=== PATIENT | male | born 1950 | race Caucasian/White ===

== ENCOUNTER 2017-01-27 06:26 | Inpatient (IN) | payer BC ==
[2017-01-26 14:00] LABS: CHLORIDE,CL 102 mmol/L (98-110); SODIUM,NA 140 mmol/L (136-146)
[2017-01-27] MEDS ORDERED: Sodium Chloride 0.9% 2.5 ML Syringe FLUSH PRN (07:00)
[2017-01-27] MEDS ORDERED: Lactated Ringers 1,000 ML IV SCH (07:00)
[2017-01-27] MEDS ORDERED: ceFAZolin 2 GM in Premix Bag 1 BAG IV ONE (07:00)
[2017-01-27] MEDS ORDERED: Sodium Chloride 0.9% 10 ML Syringe FLUSH PRN (07:00)
[2017-01-27] MEDS ORDERED: Propofol 200 MG/20 ML SDV ONE ×3 (07:18→10:37)
[2017-01-27] MEDS ORDERED: Lidocaine 2% 5 ML SDV ONE (07:18)
[2017-01-27] MEDS ORDERED: fentaNYL 250 MCG/5 ML SDV ONE (07:19)
[2017-01-27] MEDS ORDERED: fentaNYL 100 MCG/2 ML SDV ONE (07:19)
[2017-01-27] MEDS ORDERED: Midazolam 1 MG/ML 2 ML SDV ONE (07:19)
[2017-01-27] MEDS ORDERED: Neostigmine Methylsulfate 1 MG/ML 5 ML Syringe ONE (07:23)
[2017-01-27] MEDS ORDERED: Ondansetron 4 MG/2 ML SDV ONE (07:23)
[2017-01-27] MEDS ORDERED: Rocuronium 10 MG/ML 10 ML Syringe ONE ×2 (07:23→09:25)
[2017-01-27] MEDS ORDERED: ePHEDrine 50 MG/ML SDV ONE (07:25)
[2017-01-27] MEDS ORDERED: Morphine PF 10 MG/10 ML SDV ONE (07:33)
[2017-01-27] MEDS ORDERED: Gentamicin 40 MG/ML 2 ML Vial ONE (07:41)
--- NOTE | 2017-01-27 07:49 | PCM.PREANE ---
Preanesthetic Assessment - Procedure Proposed Procedure: Right radical nephrectomy - Anesthesia/Transfusion/Family Hx Anesthesia History: Prior Anesthesia Without Reaction Family History of Anesthesia Reaction: No Transfusion History: No Prior Transfusion(s) Intubation History: Unknown Additional History: 2 yr ago had emergent abdominal surgery for perforated bowel at colonoscopy. - Review of Systems General: No Symptoms Pulmonary: Cough (typical smokers cough) Cardiovascular: No Symptoms (active work lifestyle) Gastrointestinal: No Symptoms Neurological: No Symptoms Other: Reports: None - Physical Assessment NPO Status Date: 01/26/17 NPO Status Time: 23:00 O2 Sat by Pulse Oximetry: 95 Respiratory Rate: 16 Vital Signs: Last Vital Signs Temp 97.0 F 01/27/17 06:42 Pulse 84 01/27/17 06:42 Resp 16 01/27/17 06:42 BP 129/82 01/27/17 06:42 Pulse Ox 95 01/27/17 06:42 Height: 5 ft 10 in Weight: 163 lb ASA Class: 3 Mental Status: Alert & Oriented x3 Airway Class: Mallampati = 2 Dentition: Reports: Normal Dentition Thyro-Mental Finger Breadths: 3 (bearded) Mouth Opening Finger Breadths: 3 (narrow mouth) ROM/Head Extension: Limited/Partial Lungs: Clear to Auscultation, Normal Respiratory Effort Cardiovascular: Regular Rate, Regular Rhythm, No Murmurs - Lab Values: Laboratory Last Values WBC 10.19 K/uL (4.0-11.0) 01/26/17 13:34 RBC 4.65 M/uL (4.50-5.90) 01/26/17 13:34 Hgb 15.5 g/dL (13.0-17.0) 01/26/17 13:34 Hct 45.3 % (38.0-50.0) 01/26/17 13:34 MCV 97.4 fL (80.0-98.0) 01/26/17 13:34 MCH 33.3 pg (27.0-32.0) H 01/26/17 13:34 MCHC 34.2 g/dL (31.0-37.0) 01/26/17 13:34 RDW Std Deviation 49.0 fl (28.0-62.0) 01/26/17 13:34 RDW Coeff of Durga 14 % (11.0-15.0) 01/26/17 13:34 Plt Count 384 K/uL (150-400) 01/26/17 13:34 MPV 9.70 fL (7.40-12.00) 01/26/17 13:34 Neut % (Auto) 62.1 % (48.0-80.0) 01/26/17 13:34 Lymph % (Auto) 26.5 % (16.0-40.0) 01/26/17 13:34 [place] % (Auto) 10.4 % (0.0-15.0) 01/26/17 13:34 Eos % (Auto) 0.8 % (0.0-7.0) 01/26/17 13:34 Baso % (Auto) 0.2 % (0.0-1.5) 01/26/17 13:34 Neut # (Auto) 6.3 K/uL (1.4-5.7) H 01/26/17 13:34 Lymph # (Auto) 2.7 K/uL (0.6-2.4) H 01/26/17 13:34 [place] # (Auto) 1.1 K/uL (0.0-0.8) H 01/26/17 13:34 Eos # (Auto) 0.1 K/uL (0.0-0.7) 01/26/17 13:34 Baso # (Auto) 0.0 K/uL (0.0-0.1) 01/26/17 13:34 Nucleated RBC % 0.0 /100WBC 01/26/17 13:34 Nucleated RBCs # 0 K/uL 01/26/17 13:34 Sodium 140 mmol/L (136-146) 01/26/17 13:34 Potassium 4.4 mmol/L (3.5-5.1) 01/26/17 13:34 Chloride 102 mmol/L (98-110) 01/26/17 13:34 Carbon Dioxide 30 mmol/L (21-31) 01/26/17 13:34 BUN 14 mg/dL (6.0-23.0) 01/26/17 13:34 Creatinine 0.9 mg/dL (0.6-1.5) 01/26/17 13:34 Est Cr Clr Drug Dosing 85.62 mL/min 01/26/17 13:34 Estimated GFR (MDRD) > 60.0 ml/min 01/26/17 13:34 Glucose 102 mg/dL (60-110) 01/26/17 13:34 Calcium 9.8 mg/dL (8.8-10.8) 01/26/17 13:34 Blood Type A NEGATIVE 01/26/17 13:34 Antibody Screen NEGATIVE 01/26/17 13:34 Crossmatch See Detail 01/26/17 13:34 - Imaging/EKG Impressions: SR, Q III and ?aVF, II - old inferior UT (without any history). - Allergies Allergies/Adverse Reactions: Allergies Allergy/AdvReac Type Severity Reaction Status Date / Time No Known Allergies Allergy Verified 01/27/17 07:21 - Blood Blood Available: Yes Product(s) Available: PRBC (T and C) - Anesthesia Plan Pre-Op Medication Ordered: None - Acknowledgements Anesthesia Type Planned: General Anesthesia (consider spinal MS for postoperative pain management assist) Pt an Appropriate Candidate for the Planned Anesthesia: Yes Alternatives and Risks of Anesthesia Discussed w Pt/Guardian: Yes Pt/Guardian Understands and Agrees with Anesthesia Plan: Yes PreAnesthesia Questionnaire HEENT History: Reports: Hard of Hearing, Other (See Below) Other HEENT History: has upper partial permanent bridge Cardiovascular History: Reports: Hypertension Respiratory History: Reports: COPD Musculoskeletal History: Reports: Back Pain, Chronic, Fracture Other Musculoskeletal History: hx of fx clavicle Endocrine/Metabolic History: Reports: Other (See Below) Other Endocrine/Metabolic History: states is "pre-diabetic" - Past Surgical History HEENT Surgical History: Reports: Other (See Below) Other HEENT Surgeries/Procedures: had "lump" removed from throat here and at [facility] GI Surgical History: Reports: Colon, Colonoscopy, Hernia, Inguinal Other GI Surgeries/Procedures: had colonoscopy with perforation, colon repair - SUBSTANCE USE Smoking Status *Q: Current Every Day Smoker Tobacco Use Within Last Twelve Months: Cigarettes Number of Drinks Per Day: 6 Recreational Drug Use History: No - HOME MEDS Home Medications: Home Meds Albuterol [IJD: Albuterol HFA] 1 puff INH ASDIRECTED PRN 01/24/17 [History] Doxycycline Hyclate 100 mg PO BID 01/24/17 [History] Metoprolol Succinate 50 mg PO BID 01/24/17 [History] Promethazine/Phenyleph/Codeine [Promethazine VC-Codeine Syrup] 1 dose PO ASDIRECTED PRN 01/24/17 [History] - CURRENT (IN HOUSE) MEDS Current Meds: Current Medications Lactated Ringer's (Ringers, Lactated) 1,000 mls @ 200 mls/hr IV ASDIRECTED KINA Last Admin: 01/27/17 06:47 Dose: 200 mls/hr Sodium Chloride (Saline Flush) 10 ml FLUSH ASDIRECTED PRN PRN Reason: Keep Vein Open Sodium Chloride (Saline Flush) 2.5 ml FLUSH ASDIRECTED PRN PRN Reason: Keep Vein Open Discontinued Medications Ephedrine Sulfate (Ephedrine Sulfate) Confirm Administered Dose 100 mg .ROUTE .STK-MED ONE Stop: 01/27/17 07:26 Fentanyl (Sublimaze) Confirm Administered Dose 100 mcg .ROUTE .STK-MED ONE Stop: 01/27/17 07:20 Fentanyl (Sublimaze) Confirm Administered Dose 250 mcg .ROUTE .STK-MED ONE Stop: 01/27/17 07:20 Glycopyrrolate () Confirm Administered Dose 1 mg .ROUTE .STK-MED ONE Stop: 01/27/17 07:24 Cefazolin Sodium/Dextrose 2 gm (/ Premix) 50 mls @ 100 mls/hr IV ONCALL ONE Stop: 01/27/17 07:29 Lidocaine (Xylocaine-Mpf 2%) Confirm Administered Dose 10 ml .ROUTE .STK-MED ONE Stop: 01/27/17 07:19 Midazolam HCl (Versed 1 Mg/Ml) Confirm Administered Dose 2 mg .ROUTE .STK-MED ONE Stop: 01/27/17 07:20 Morphine Sulfate (Duramorph Pf) Confirm Administered Dose 10 mg .ROUTE .STK-MED ONE Stop: 01/27/17 07:34 Neostigmine Methylsulfate (Neostigmine) Confirm Administered Dose 5 mg .ROUTE .STK-MED ONE Stop: 01/27/17 07:24 Ondansetron HCl (Zofran) Confirm Administered Dose 8 mg .ROUTE .STK-MED ONE Stop: 01/27/17 07:24 Propofol (Diprivan 20 Ml) Confirm Administered Dose 400 mg .ROUTE .STK-MED ONE Stop: 12/07/17 07:19 Rocuronium [place] (Zemuron) Confirm Administered Dose 100 mg .ROUTE .[facility] ONE Stop: 01/27/17 07:24
[2017-01-27] MEDS ORDERED: Phenylephrine/Normal Saline 100 MCG/ML 10 ML Syringe ONE (08:59)
[2017-01-27] MEDS ORDERED: Phenylephrine 1% 10 MG/ML SDV ONE (08:59)
[2017-01-27] MEDS ORDERED: Ondansetron 4 MG/2 ML SDV IVPUSH PRN (11:18)
[2017-01-27] MEDS ORDERED: ceFAZolin 1 GM in Premix Bag 1 BAG IV SCH (11:30)
[2017-01-27] MEDS: D5 1/2 NS w/ 20 mEq/L KCl 1,000 ML IV SCH ×2 (12:22→19:02)
[2017-01-27] MEDS ORDERED: HYDROmorphone 2 MG/ML Syringe IVPUSH PRN (12:25)
[2017-01-27 12:28] LABS: CHLORIDE,CL 105 mmol/L (98-110); SODIUM,NA 138 mmol/L (136-146)
[2017-01-27] MEDS ORDERED: HYDROmorphone 2 MG/ML Syringe ONE (12:35)
[2017-01-27] MEDS: ceFAZolin 1 GM in Premix Bag 1 BAG IV SCH ×2 (14:02→20:22)
--- NOTE | 2017-01-27 14:29 | PCM.POSTAN ---
POST ANESTHESIA ASSESSMENT - MENTAL STATUS Mental Status: Alert, Oriented - RESPIRATORY Respiratory Status: Respiratory Rate WNL, Airway Patent, O2 Saturation Stable - CARDIOVASCULAR CV Status: Pulse Rate WNL, Blood Pressure Stable - GASTROINTESTINAL GI Status: No Symptoms - POST OP HYDRATION Hydration Status: Adequate & Stable
[2017-01-27] MEDS ORDERED: Naloxone 0.4 MG/ML Syringe IVPUSH PRN (15:13)
[2017-01-27] MEDS ORDERED: Nalbuphine 10 MG/1 ML Vial IVPUSH PRN (15:13)
[2017-01-27] MEDS ORDERED: fentaNYL 100 MCG/2 ML SDV IVPUSH PRN (15:57)
[2017-01-27] MEDS: Enoxaparin 40 MG/0.4 ML Syringe SUBCUT SCH (17:23)
[2017-01-27] MEDS ORDERED: Albuterol 8 GM Inhaler INH PRN (19:26)
[2017-01-27] MEDS ORDERED: LORazepam 1 MG Tab PO SCH (19:45)
[2017-01-27] MEDS: Metoprolol Succinate 50 MG Tab.ER PO SCH (20:23)
[2017-01-28] MEDS: ceFAZolin 1 GM in Premix Bag 1 BAG IV SCH ×4 (01:19→19:45)
[2017-01-28] MEDS: D5 1/2 NS w/ 20 mEq/L KCl 1,000 ML IV SCH (02:47)
[2017-01-28] MEDS ORDERED: Pantoprazole 40 MG Tab.CR PO SCH (07:30)
[2017-01-28] MEDS: Metoprolol Succinate 50 MG Tab.ER PO SCH ×3 (07:57→19:59)
--- NOTE | 2017-01-28 08:01 | PCM.CONS ---
<Graham Desouza - Last Filed: 01/28/17 11:01> H&P History of Present Illness - General Admit Problem/Dx: Admission Diagnosis/Problem Admission Diagnosis/Problem Renal mass - Related Data Allergies/Adverse Reactions: Allergies Allergy/AdvReac Type Severity Reaction Status Date / Time No Known Allergies Allergy Verified 01/27/17 07:21 Home Medications: Home Meds Albuterol [IJD: Albuterol HFA] 1 puff INH DAILY PRN 01/24/17 [History] Doxycycline Hyclate 100 mg PO BID 01/24/17 [History] Metoprolol Succinate 50 mg PO BID 01/24/17 [History] Promethazine/Phenyleph/Codeine [Promethazine VC-Codeine Syrup] 1 dose PO ASDIRECTED PRN 01/24/17 [History] Codeine/Promethazine [Phenergan with Codeine] 10 ml PO Q4H PRN 01/27/17 [History ] Exam - Vital Signs Vital Signs: Last Vital Signs Temp 97.8 F 01/28/17 04:00 Pulse 100 01/28/17 07:57 Resp 16 01/28/17 07:00 BP 153/92 H 01/28/17 07:57 Pulse Ox 94 L 01/28/17 07:00 - Patient Data Lab Results Last 24 hrs: Laboratory Results - last 24 hr 01/27/17 01/27/17 01/28/17 Range/Units 11:47 11:47 05:15 WBC 18.52 H 11.29 H (4.0-11.0) K/uL RBC 3.94 L 3.72 L (4.50-5.90) M/uL Hgb 12.8 L 12.1 L (13.0-17.0) g/dL Hct 39.0 36.9 L (38.0-50.0) % MCV 99.0 H 99.2 H (80.0-98.0) fL MCH 32.5 H 32.5 H (27.0-32.0) pg MCHC 32.8 32.8 (31.0-37.0) g/dL RDW Std Deviation 50.1 50.3 (28.0-62.0) fl RDW Coeff of Durga 14 14 (11.0-15.0) % Plt Count 330 275 (150-400) K/uL MPV 9.80 10.40 (7.40-12.00) fL Neut % (Auto) 79.8 65.4 (48.0-80.0) % Lymph % (Auto) 12.5 L 18.5 (16.0-40.0) % [place] % (Auto) 6.7 14.0 (0.0-15.0) % Eos % (Auto) 0.9 2.0 (0.0-7.0) % Baso % (Auto) 0.1 0.1 (0.0-1.5) % Neut # (Auto) 14.8 H 7.4 H (1.4-5.7) K/uL Lymph # (Auto) 2.3 2.1 (0.6-2.4) K/uL [place] # (Auto) 1.3 H 1.6 H (0.0-0.8) K/uL Eos # (Auto) 0.2 0.2 (0.0-0.7) K/uL Baso # (Auto) 0.0 0.0 (0.0-0.1) K/uL Nucleated RBC % 0.0 0.0 /100WBC Nucleated RBCs # 0 0 K/uL Sodium 138 (136-146) mmol/L Potassium 4.5 (3.5-5.1) mmol/L Chloride 105 (98-110) mmol/L Carbon Dioxide 29 (21-31) mmol/L BUN 11 (6.0-23.0) mg/dL Creatinine 0.9 (0.6-1.5) mg/dL Est Cr Clr Drug Dosing 85.62 mL/min Estimated GFR (MDRD) > 60.0 ml/min Glucose 128 H (60-110) mg/dL Calcium 8.6 L (8.8-10.8) mg/dL Troponin I (0.0-0.29) NG/ML 01/28/17 Range/Units 05:15 WBC (4.0-11.0) K/uL RBC (4.50-5.90) M/uL Hgb (13.0-17.0) g/dL Hct (38.0-50.0) % MCV (80.0-98.0) fL MCH (27.0-32.0) pg MCHC (31.0-37.0) g/dL RDW Std Deviation (28.0-62.0) fl RDW Coeff of Durga (11.0-15.0) % Plt Count (150-400) K/uL MPV (7.40-12.00) fL Neut % (Auto) (48.0-80.0) % Lymph % (Auto) (16.0-40.0) % [place] % (Auto) (0.0-15.0) % Eos % (Auto) (0.0-7.0) % Baso % (Auto) (0.0-1.5) % Neut # (Auto) (1.4-5.7) K/uL Lymph # (Auto) (0.6-2.4) K/uL [place] # (Auto) (0.0-0.8) K/uL Eos # (Auto) (0.0-0.7) K/uL Baso # (Auto) (0.0-0.1) K/uL Nucleated RBC % /100WBC Nucleated RBCs # K/uL Sodium (136-146) mmol/L Potassium (3.5-5.1) mmol/L Chloride (98-110) mmol/L Carbon Dioxide (21-31) mmol/L BUN (6.0-23.0) mg/dL Creatinine (0.6-1.5) mg/dL Est Cr Clr Drug Dosing mL/min Estimated GFR (MDRD) ml/min Glucose (60-110) mg/dL Calcium (8.8-10.8) mg/dL Troponin I < 0.10 (0.0-0.29) NG/ML Result Diagrams: 01/28/17 05:15 01/27/17 11:47 Consult PN Assessment/Plan Procedures: Procedures AIRWAY INHALATION TREATMENT (06/14/13) ASSAY OF CK (CPK) (06/14/13) ASSAY OF NATRIURETIC PEPTIDE (06/14/13) ASSAY OF TROPONIN QUANT (06/14/13) CHEST X-RAY 2VW FRONTAL&LATL (06/14/13) COMPLETE CBC W/AUTO DIFF WBC (06/14/13) COMPREHEN METABOLIC PANEL (06/14/13) CREATINE MB FRACTION (06/14/13) ELECTROCARDIOGRAM TRACING (06/14/13) EMERGENCY DEPT VISIT (06/14/13) ROUTINE VENIPUNCTURE (06/14/13) URINALYSIS AUTO W/SCOPE (01/17/17) (1) Acid reflux SNOMED Code(s): 983620671 Code(s): K21.9 - GASTRO-ESOPHAGEAL REFLUX DISEASE WITHOUT ESOPHAGITIS Current Visit: Yes Problem List Initiated/Reviewed/Updated: Yes Plan: protonix tums <Jana Khoury - Last Filed: 01/28/17 11:23> H&P History of Present Illness - General Date of Service: 01/28/17 Admit Problem/Dx: Admission Diagnosis/Problem Admission Diagnosis/Problem Renal mass Source of Information: Patient - History of Present Illness Initial Comments - Free Text/Narative: 66 yo male who underwent right radical nephrectomy yesterday c/o of nonspecific epigastrium discomfort. He states he feels like a choking sensation. He denies chest pain, sob, n/v/d, diaphoresis. He is tolerating clear liquid diet. Onset of Symptoms: Reports: Today Abdomen Pain Score (Numeric/FACES): 2 Past Medical History HEENT History: Reports: Hard of Hearing, Other (See Below) Other HEENT History: has upper partial permanent bridge Cardiovascular History: Reports: Hypertension Respiratory History: Reports: COPD Musculoskeletal History: Reports: Back Pain, Chronic, Fracture Other Musculoskeletal History: hx of fx clavicle Endocrine/Metabolic History: Reports: Other (See Below) Other Endocrine/Metabolic History: states is "pre-diabetic" - Past Surgical History HEENT Surgical History: Reports: Other (See Below) Other HEENT Surgeries/Procedures: had "lump" removed from throat here and at [facility] GI Surgical History: Reports: Colon, Colonoscopy, Hernia, Inguinal Other GI Surgeries/Procedures: had colonoscopy with perforation, colon repair Social & Family History - Tobacco Use Smoking Status *Q: Current Every Day Smoker Years of Tobacco use: 43 Packs/Tins Daily: 1 Used Tobacco, but Quit: No Second Hand Smoke Exposure: No - Alcohol Use Number of Drinks Per Day: 6 - Recreational Drug Use Recreational Drug Use: No Drug Use in Last 12 Months: No H&P Review of Systems - Review of Systems: Review Of Systems: See Below General: Reports: No Symptoms HEENT: Reports: No Symptoms Pulmonary: Reports: No Symptoms Cardiovascular: Reports: No Symptoms Gastrointestinal: Reports: Other (episgastric nospecific discomfort) Musculoskeletal: Reports: No Symptoms Skin: Reports: No Symptoms Psychiatric: Reports: No Symptoms Neurological: Reports: No Symptoms Exam - Exam Exam: See Below - Vital Signs Vital Signs: Last Vital Signs Temp 97.8 F 01/28/17 04:00 Pulse 100 01/28/17 07:57 Resp 16 01/28/17 07:00 BP 153/92 H 01/28/17 07:57 Pulse Ox 94 L 01/28/17 07:00 Weight: 76 kg - Exam General: Alert, Oriented HEENT: Conjunctiva Clear, EOMI Neck: Supple, Trachea Midline Lungs: Clear to Auscultation, Normal Respiratory Effort Cardiovascular: Regular Rate, Regular Rhythm GI/Abdominal Exam: Normal Bowel Sounds, Soft Back Exam: Normal Inspection, Full Range of Motion Extremities: Normal Inspection, Normal Range of Motion - Patient Data Lab Results Last 24 hrs: Laboratory Results - last 24 hr 01/27/17 01/27/17 01/28/17 Range/Units 11:47 11:47 05:15 WBC 18.52 H 11.29 H (4.0-11.0) K/uL RBC 3.94 L 3.72 L (4.50-5.90) M/uL Hgb 12.8 L 12.1 L (13.0-17.0) g/dL Hct 39.0 36.9 L (38.0-50.0) % MCV 99.0 H 99.2 H (80.0-98.0) fL MCH 32.5 H 32.5 H (27.0-32.0) pg MCHC 32.8 32.8 (31.0-37.0) g/dL RDW Std Deviation 50.1 50.3 (28.0-62.0) fl RDW Coeff of Durga 14 14 (11.0-15.0) % Plt Count 330 275 (150-400) K/uL MPV 9.80 10.40 (7.40-12.00) fL Neut % (Auto) 79.8 65.4 (48.0-80.0) % Lymph % (Auto) 12.5 L 18.5 (16.0-40.0) % [place] % (Auto) 6.7 14.0 (0.0-15.0) % Eos % (Auto) 0.9 2.0 (0.0-7.0) % Baso % (Auto) 0.1 0.1 (0.0-1.5) % Neut # (Auto) 14.8 H 7.4 H (1.4-5.7) K/uL Lymph # (Auto) 2.3 2.1 (0.6-2.4) K/uL [place] # (Auto) 1.3 H 1.6 H (0.0-0.8) K/uL Eos # (Auto) 0.2 0.2 (0.0-0.7) K/uL Baso # (Auto) 0.0 0.0 (0.0-0.1) K/uL Nucleated RBC % 0.0 0.0 /100WBC Nucleated RBCs # 0 0 K/uL Sodium 138 (136-146) mmol/L Potassium 4.5 (3.5-5.1) mmol/L Chloride 105 (98-110) mmol/L Carbon Dioxide 29 (21-31) mmol/L BUN 11 (6.0-23.0) mg/dL Creatinine 0.9 (0.6-1.5) mg/dL Est Cr Clr Drug Dosing 85.62 mL/min Estimated GFR (MDRD) > 60.0 ml/min Glucose 128 H (60-110) mg/dL Calcium 8.6 L (8.8-10.8) mg/dL Troponin I (0.0-0.29) NG/ML 01/28/17 Range/Units 05:15 WBC (4.0-11.0) K/uL RBC (4.50-5.90) M/uL Hgb (13.0-17.0) g/dL Hct (38.0-50.0) % MCV (80.0-98.0) fL MCH (27.0-32.0) pg MCHC (31.0-37.0) g/dL RDW Std Deviation (28.0-62.0) fl RDW Coeff of Durga (11.0-15.0) % Plt Count (150-400) K/uL MPV (7.40-12.00) fL Neut % (Auto) (48.0-80.0) % Lymph % (Auto) (16.0-40.0) % [place] % (Auto) (0.0-15.0) % Eos % (Auto) (0.0-7.0) % Baso % (Auto) (0.0-1.5) % Neut # (Auto) (1.4-5.7) K/uL Lymph # (Auto) (0.6-2.4) K/uL [place] # (Auto) (0.0-0.8) K/uL Eos # (Auto) (0.0-0.7) K/uL Baso # (Auto) (0.0-0.1) K/uL Nucleated RBC % /100WBC Nucleated RBCs # K/uL Sodium (136-146) mmol/L Potassium (3.5-5.1) mmol/L Chloride (98-110) mmol/L Carbon Dioxide (21-31) mmol/L BUN (6.0-23.0) mg/dL Creatinine (0.6-1.5) mg/dL Est Cr Clr Drug Dosing mL/min Estimated GFR (MDRD) ml/min Glucose (60-110) mg/dL Calcium (8.8-10.8) mg/dL Troponin I < 0.10 (0.0-0.29) NG/ML Result Diagrams: 01/28/17 05:15 01/27/17 11:47 Consult PN Assessment/Plan Procedures: Procedures AIRWAY INHALATION TREATMENT (06/14/13) ASSAY OF CK (CPK) (06/14/13) ASSAY OF NATRIURETIC PEPTIDE (06/14/13) ASSAY OF TROPONIN QUANT (06/14/13) CHEST X-RAY 2VW FRONTAL&LATL (06/14/13) COMPLETE CBC W/AUTO DIFF WBC (06/14/13) COMPREHEN METABOLIC PANEL (06/14/13) CREATINE MB FRACTION (06/14/13) ELECTROCARDIOGRAM TRACING (06/14/13) EMERGENCY DEPT VISIT (06/14/13) ROUTINE VENIPUNCTURE (06/14/13) URINALYSIS AUTO W/SCOPE (01/17/17) My Orders Last 24 Hours: My Active Orders 01/28/17 07:30 Pantoprazole [ProTONIX] 40 mg PO ACBREAKFAST 01/28/17 07:57 Calcium Carbonate [Tums] 500 mg PO Q2HR PRN Plan: Episgastric nonspecific discomfort: EKG: no acute ST changes compared to yesterday's EKG Troponin negative start protonix 40 mg po QD and tums On CIWAA protocol as he consumes 8 drinks per day. HTN: stable. No changes at this time
[2017-01-28] MEDS ORDERED: Furosemide 40 MG/4 ML VIAL IVPUSH ONE (08:12)
[2017-01-28] MEDS ORDERED: D5 1/2 NS w/ 20 mEq/L KCl 1,000 ML IV SCH (08:14)
--- NOTE | 2017-01-28 09:23 | PCM.SURGPN ---
- General Info Date of Service: 01/28/17 Date of Surgery/Procedure: 01/21/17 POD#: 1 Functional Status: Reports: Pain Controlled - Review of Systems General: Reports: No Symptoms HEENT: Reports: No Symptoms Pulmonary: Reports: No Symptoms Cardiovascular: Reports: No Symptoms Gastrointestinal: Reports: Abdominal Pain Musculoskeletal: Reports: No Symptoms Skin: Reports: No Symptoms Neurological: Reports: No Symptoms Psychiatric: Reports: No Symptoms - Patient Data Vitals - Most Recent: Last Vital Signs Temp 97.8 F 01/28/17 04:00 Pulse 100 01/28/17 07:57 Resp 16 01/28/17 07:00 BP 153/92 H 01/28/17 07:57 Pulse Ox 94 L 01/28/17 07:00 Weight - Most Recent: 167 lb 8.821 oz I&O - Last 24 Hours: Intake & Output 01/27/17 01/28/17 01/28/17 19:59 03:59 11:59 Intake Total 11257 648 450 Output Total 490 1250 Balance 22427 648 -800 Lab Results Last 24 Hrs: Laboratory Results - last 24 hr 01/27/17 01/27/17 01/28/17 Range/Units 11:47 11:47 05:15 WBC 18.52 H 11.29 H (4.0-11.0) K/uL RBC 3.94 L 3.72 L (4.50-5.90) M/uL Hgb 12.8 L 12.1 L (13.0-17.0) g/dL Hct 39.0 36.9 L (38.0-50.0) % MCV 99.0 H 99.2 H (80.0-98.0) fL MCH 32.5 H 32.5 H (27.0-32.0) pg MCHC 32.8 32.8 (31.0-37.0) g/dL RDW Std Deviation 50.1 50.3 (28.0-62.0) fl RDW Coeff of Durga 14 14 (11.0-15.0) % Plt Count 330 275 (150-400) K/uL MPV 9.80 10.40 (7.40-12.00) fL Neut % (Auto) 79.8 65.4 (48.0-80.0) % Lymph % (Auto) 12.5 L 18.5 (16.0-40.0) % [place] % (Auto) 6.7 14.0 (0.0-15.0) % Eos % (Auto) 0.9 2.0 (0.0-7.0) % Baso % (Auto) 0.1 0.1 (0.0-1.5) % Neut # (Auto) 14.8 H 7.4 H (1.4-5.7) K/uL Lymph # (Auto) 2.3 2.1 (0.6-2.4) K/uL [place] # (Auto) 1.3 H 1.6 H (0.0-0.8) K/uL Eos # (Auto) 0.2 0.2 (0.0-0.7) K/uL Baso # (Auto) 0.0 0.0 (0.0-0.1) K/uL Nucleated RBC % 0.0 0.0 /100WBC Nucleated RBCs # 0 0 K/uL Sodium 138 (136-146) mmol/L Potassium 4.5 (3.5-5.1) mmol/L Chloride 105 (98-110) mmol/L Carbon Dioxide 29 (21-31) mmol/L BUN 11 (6.0-23.0) mg/dL Creatinine 0.9 (0.6-1.5) mg/dL Est Cr Clr Drug Dosing 85.62 mL/min Estimated GFR (MDRD) > 60.0 ml/min Glucose 128 H (60-110) mg/dL Calcium 8.6 L (8.8-10.8) mg/dL Troponin I (0.0-0.29) NG/ML 01/28/17 Range/Units 05:15 WBC (4.0-11.0) K/uL RBC (4.50-5.90) M/uL Hgb (13.0-17.0) g/dL Hct (38.0-50.0) % MCV (80.0-98.0) fL MCH (27.0-32.0) pg MCHC (31.0-37.0) g/dL RDW Std Deviation (28.0-62.0) fl RDW Coeff of Durga (11.0-15.0) % Plt Count (150-400) K/uL MPV (7.40-12.00) fL Neut % (Auto) (48.0-80.0) % Lymph % (Auto) (16.0-40.0) % [place] % (Auto) (0.0-15.0) % Eos % (Auto) (0.0-7.0) % Baso % (Auto) (0.0-1.5) % Neut # (Auto) (1.4-5.7) K/uL Lymph # (Auto) (0.6-2.4) K/uL [place] # (Auto) (0.0-0.8) K/uL Eos # (Auto) (0.0-0.7) K/uL Baso # (Auto) (0.0-0.1) K/uL Nucleated RBC % /100WBC Nucleated RBCs # K/uL Sodium (136-146) mmol/L Potassium (3.5-5.1) mmol/L Chloride (98-110) mmol/L Carbon Dioxide (21-31) mmol/L BUN (6.0-23.0) mg/dL Creatinine (0.6-1.5) mg/dL Est Cr Clr Drug Dosing mL/min Estimated GFR (MDRD) ml/min Glucose (60-110) mg/dL Calcium (8.8-10.8) mg/dL Troponin I < 0.10 (0.0-0.29) NG/ML Med Orders - Current: Current Medications Hydrocodone Bitart/Acetaminophen ([place] 325-5 Mg) 1 tab PO Q4H PRN PRN Reason: Pain Albuterol (Ventolin Hfa) 0 gm INH DAILY PRN PRN Reason: Wheezing Calcium Carbonate/Glycine (Tums) 500 mg PO Q2HR PRN PRN Reason: Indigestion Enoxaparin Sodium (Lovenox) 40 mg SUBCUT Q24H [facility] Last Admin: 01/27/17 17:23 Dose: Not Given Fentanyl (Sublimaze) 50 - 100 mcg IVPUSH Q2H PRN PRN Reason: Breakthrough Pain Hydromorphone HCl (Dilaudid) 2 mg IVPUSH Q2H PRN PRN Reason: Pain Last Admin: 01/27/17 12:40 Dose: 2 mg Lactated Ringer's (Ringers, Lactated) 1,000 mls @ 200 mls/hr IV ASDIRECTED [facility] Last Admin: 01/27/17 06:47 Dose: 200 mls/hr Cefazolin Sodium/Dextrose 1 gm (/ Premix) 50 mls @ 100 mls/hr IV Q6H [facility] Last Admin: 01/28/17 07:34 Dose: 100 mls/hr Potassium Chloride/Dextrose/Sod Cl (D5 1/2 Ns W/ 20 Meq/L Kcl) 1,000 mls @ 75 mls/hr IV ASDIRECTED [facility] Lorazepam (Ativan) 0 mg PO ASDIRECTED [facility] PRN Reason: Protocol Metoprolol Succinate (Toprol Xl) 50 mg PO BID [facility] Last Admin: 01/28/17 07:57 Dose: 50 mg Nalbuphine HCl (Nubain) 5 mg IVPUSH Q3H PRN PRN Reason: Pruritis Stop: 01/28/17 15:13 Naloxone HCl (Narcan) 0.1 mg IVPUSH ONETIME PRN PRN Reason: Respiratory Depression Stop: 01/28/17 15:13 Ondansetron HCl (Zofran) 4 mg IVPUSH Q4H PRN PRN Reason: Nausea Last Admin: 01/28/17 06:24 Dose: 4 mg Pantoprazole Sodium (Protonix) 40 mg PO ACBREAKFAST [facility] Last Admin: 01/28/17 07:33 Dose: 40 mg Promethazine HCl/Codeine (Phenergan With Codeine) 10 ml PO Q4H PRN PRN Reason: Cough Sodium Chloride (Saline Flush) 10 ml FLUSH ASDIRECTED PRN PRN Reason: Keep Vein Open Sodium Chloride (Saline Flush) 2.5 ml FLUSH ASDIRECTED PRN PRN Reason: Keep Vein Open Discontinued Medications Ephedrine Sulfate (Ephedrine Sulfate) Confirm Administered Dose 100 mg .ROUTE .STK-MED ONE Stop: 01/27/17 07:26 Fentanyl (Sublimaze) Confirm Administered Dose 100 mcg .ROUTE .STK-MED ONE Stop: 01/27/17 07:20 Fentanyl (Sublimaze) Confirm Administered Dose 250 mcg .ROUTE .STK-MED ONE Stop: 01/27/17 07:20 Furosemide (Lasix) 10 mg IVPUSH NOW ONE Stop: 01/28/17 08:13 Last Admin: 01/28/17 08:37 Dose: 10 mg Gentamicin Sulfate (Gentamicin) Confirm Administered Dose 80 mg .ROUTE .STK-MED ONE Stop: 01/27/17 07:42 Glycopyrrolate () Confirm Administered Dose 1 mg .ROUTE .STK-MED ONE Stop: 01/27/17 07:24 Hydromorphone HCl (Dilaudid) Confirm Administered Dose 2 mg .ROUTE .STK-MED ONE Stop: 01/27/17 12:36 Last Admin: 01/27/17 12:47 Dose: Not Given Cefazolin Sodium/Dextrose 2 gm (/ Premix) 50 mls @ 100 mls/hr IV ONCALL ONE Stop: 01/27/17 07:29 Last Admin: 01/27/17 13:28 Dose: Not Given Potassium Chloride/Dextrose/Sod Cl (D5 1/2 Ns W/ 20 Meq/L Kcl) 1,000 mls @ 150 mls/hr IV ASDIRECTED [facility] Last Admin: 01/28/17 02:47 Dose: 150 mls/hr Cefazolin Sodium/Dextrose 1 gm (/ Premix) 50 mls @ 100 mls/hr IV Q6H [facility] Last Admin: 01/27/17 13:30 Dose: Not Given Lidocaine (Xylocaine-Mpf 2%) Confirm Administered Dose 10 ml .ROUTE .STK-MED ONE Stop: 01/27/17 07:19 Midazolam HCl (Versed 1 Mg/Ml) Confirm Administered Dose 2 mg .ROUTE .STK-MED ONE Stop: 01/27/17 07:20 Morphine Sulfate (Duramorph Pf) Confirm Administered Dose 10 mg .ROUTE .STK-MED ONE Stop: 01/27/17 07:34 Neostigmine Methylsulfate (Neostigmine) Confirm Administered Dose 5 mg .ROUTE .STK-MED ONE Stop: 01/27/17 07:24 Ondansetron HCl (Zofran) Confirm Administered Dose 8 mg .ROUTE .STK-MED ONE Stop: 01/27/17 07:24 Phenylephrine HCl (Phenylephrine In Ns 100 Mcg/Ml) Confirm Administered Dose 1 mg .ROUTE .STK-MED ONE Stop: 01/27/17 09:00 Phenylephrine HCl (Ander-Synephrine) Confirm Administered Dose 10 mg .ROUTE .STK- MED ONE Stop: 01/27/17 09:00 Propofol (Diprivan 20 Ml) Confirm Administered Dose 400 mg .ROUTE .STK-MED ONE Stop: 01/27/17 07:19 Propofol (Diprivan 20 Ml) Confirm Administered Dose 200 mg .ROUTE .STK-MED ONE Stop: 01/27/17 09:33 Propofol (Diprivan 20 Ml) Confirm Administered Dose 200 mg .ROUTE .STK-MED ONE Stop: 01/27/17 10:38 Rocuronium [place] (Zemuron) Confirm Administered Dose 100 mg .ROUTE .STK-MED ONE Stop: 01/27/17 07:24 Rocuronium [place] (Zemuron) Confirm Administered Dose 100 mg .ROUTE .STK-MED ONE Stop: 01/27/17 09:26 - Exam Wound/Incisions: Healing Well General: Alert, Oriented HEENT: Pupils Equal, Pupils Reactive Neck: Supple Lungs: Clear to Auscultation Cardiovascular: Regular Rate GI/Abdominal Exam: Normal Bowel Sounds Extremities: Normal Inspection Skin: Warm, Dry, Intact Psy/Mental Status: Alert, Normal Affect, Normal Mood - Problem List Review Problem List Initiated/Reviewed/Updated: Yes - My Orders Last 24 Hours: Active Orders 24 hr Category Date Time Status Antiembolic Devices [RC] PER UNIT ROUTINE Care 01/27/17 11:22 Active Bradycardia-Neuroaxis [employer] [RC] ROUTINE Care 01/27/17 15:13 Active CIWAA Assessment [RC] Q15M Care 01/27/17 19:34 Inactive CIWAA Assessment [RC] Q1H Care 01/27/17 19:34 Inactive CIWAA Assessment [RC] Q30M Care 01/27/17 19:34 Inactive CIWAA Assessment [RC] Q4H Care 01/27/17 19:34 Active Communication Order [RC] ROUTINE Care 01/27/17 18:49 Active EKG 12 Lead [EKG Documentation Completion] [RC] STAT Care 01/28/17 06:50 Active Hypertension-Neuroaxis [employer] [RC] ROUTINE Care 01/27/17 15:13 Active Hypotension-Neuroaxis [employer] [RC] ROUTINE Care 01/27/17 15:13 Active Notify Provider Consults [RC] ASDIRECTED Care 01/28/17 07:48 Active Notify Provider [RC] PRN Care 01/27/17 19:34 Active Oxygen Therapy [RC] PER UNIT ROUTINE Care 01/27/17 15:13 Active RT Incentive Spirometry [RC] Q2HWA Care 01/27/17 11:22 Active Vital Signs [RC] Q1H Care 01/27/17 15:13 Active Consult to Physician [CONS] Urgent Cons 01/28/17 07:46 Active Clear Liquid Diet [DIET] Diet 01/27/17 Dinner Active BASIC METABOLIC PANEL,BMP [CHEM] Routine Lab 01/29/17 05:00 Ordered CBC WITH AUTO DIFF [HEME] Routine Lab 01/29/17 05:00 Ordered Acetaminophen/HYDROcodone [[place] 325-5 MG] Med 01/28/17 08:12 Active 1 tab PO Q4H PRN Albuterol [Ventolin HFA] Med 01/27/17 19:26 Active 0 gm INH DAILY PRN Calcium Carbonate [Tums] Med 01/28/17 07:57 Active 500 mg PO Q2HR PRN Codeine/Promethazine [Phenergan with Codeine] Med 01/27/17 19:26 Active 10 ml PO Q4H PRN D5 1/2 NS w/ 20 mEq/L KCl 1,000 ml Med 01/28/17 08:14 Active IV ASDIRECTED Enoxaparin [Lovenox] Med 01/27/17 11:30 Active 40 mg SUBCUT Q24H HYDROmorphone [Dilaudid] Med 01/27/17 12:35 Once 2 mg .ROUTE .STK-MED ONE HYDROmorphone [Dilaudid] Med 01/27/17 12:25 Hold 2 mg IVPUSH Q2H PRN LORazepam [Ativan] Med 01/27/17 19:45 Active See Protocol PO ASDIRECTED Metoprolol Succinate [Toprol XL] Med 01/27/17 21:00 Active 50 mg PO BID Nalbuphine [Nubain] Med 01/27/17 15:13 Active 5 mg IVPUSH Q3H PRN Naloxone [Narcan] Med 01/27/17 15:13 Active 0.1 mg IVPUSH ONETIME PRN Ondansetron [Zofran] Med 01/27/17 11:18 Active 4 mg IVPUSH Q4H PRN Pantoprazole [ProTONIX] Med 01/28/17 07:30 Active 40 mg PO ACBREAKFAST Phenylephrine [Ander-Synephrine] Med 01/27/17 08:59 Once 10 mg .ROUTE .STK-MED ONE Phenylephrine/Normal Saline [Phenylephrine in NS 100 Med 01/27/17 08:59 Once MCG/ML] 1 mg .ROUTE .STK-MED ONE Propofol [Diprivan 20 ML] Med 01/27/17 09:32 Once 200 mg .ROUTE .STK-MED ONE ceFAZolin [Ancef] 1 gm Med 01/27/17 14:00 Active Premix Bag 1 bag IV Q6H fentaNYL [Sublimaze] Med 01/27/17 15:57 Active 50 - 100 mcg IVPUSH Q2H PRN AN Neuroaxis [employer] Precaution Reflex [OM.PC] PER Oth 01/27/17 15:15 Ordered UNIT ROUTINE AN Neuroaxis [employer] Precaution Reflex [OM.PC] PER Oth 01/28/17 15:15 Ordered UNIT ROUTINE Nasogastric Orogastric Tube Removal [OM.PC] Routine Oth 01/27/17 12:30 Ordered Sequential Compression Device [OM.PC] Routine Oth 01/27/17 11:22 Ordered Medication Orders Hydrocodone Bitart/Acetaminophen ([place] 325-5 Mg) 1 tab PO Q4H PRN PRN Reason: Pain Albuterol (Ventolin Hfa) 0 gm INH DAILY PRN PRN Reason: Wheezing Calcium Carbonate/Glycine (Tums) 500 mg PO Q2HR PRN PRN Reason: Indigestion Enoxaparin Sodium (Lovenox) 40 mg SUBCUT Q24H [facility] Last Admin: 01/27/17 17:23 Dose: Fentanyl (Sublimaze) 50 - 100 mcg IVPUSH Q2H PRN PRN Reason: Breakthrough Pain Hydromorphone HCl (Dilaudid) 2 mg IVPUSH Q2H PRN PRN Reason: Pain Last Admin: 01/27/17 12:40 Dose: 2 mg Lactated Ringer's (Ringers, Lactated) 1,000 mls @ 200 mls/hr IV ASDIRECTED [facility] Last Admin: 01/27/17 06:47 Dose: 200 mls/hr Cefazolin Sodium/Dextrose 1 gm (/ Premix) 50 mls @ 100 mls/hr IV Q6H [facility] Last Admin: 01/28/17 07:34 Dose: 100 mls/hr Infusion: 01/28/17 01:49 Dose: 100 mls/hr Admin: 01/28/17 01:19 Dose: 100 mls/hr Infusion: 01/27/17 20:52 Dose: 100 mls/hr Admin: 01/27/17 20:22 Dose: 100 mls/hr Infusion: 01/27/17 14:32 Dose: 100 mls/hr Admin: 01/27/17 14:02 Dose: 100 mls/hr Potassium Chloride/Dextrose/Sod Cl (D5 1/2 Ns W/ 20 Meq/L Kcl) 1,000 mls @ 75 mls/hr IV ASDIRECTED [facility] Lorazepam (Ativan) 0 mg PO ASDIRECTED [facility] PRN Reason: Protocol Metoprolol Succinate (Toprol Xl) 50 mg PO BID [facility] Last Admin: 01/28/17 07:57 Dose: 50 mg Admin: 01/27/17 20:23 Dose: Nalbuphine HCl (Nubain) 5 mg IVPUSH Q3H PRN PRN Reason: Pruritis Stop: 01/28/17 15:13 Naloxone HCl (Narcan) 0.1 mg IVPUSH ONETIME PRN PRN Reason: Respiratory Depression Stop: 01/28/17 15:13 Ondansetron HCl (Zofran) 4 mg IVPUSH Q4H PRN PRN Reason: Nausea Last Admin: 01/28/17 06:24 Dose: 4 mg Pantoprazole Sodium (Protonix) 40 mg PO ACBREAKFAST [facility] Last Admin: 01/28/17 07:33 Dose: 40 mg Promethazine HCl/Codeine (Phenergan With Codeine) 10 ml PO Q4H PRN PRN Reason: Cough Sodium Chloride (Saline Flush) 10 ml FLUSH ASDIRECTED PRN PRN Reason: Keep Vein Open Sodium Chloride (Saline Flush) 2.5 ml FLUSH ASDIRECTED PRN PRN Reason: Keep Vein Open
[2017-01-28] MEDS: Calcium Carbonate 500 MG Tab.Chew PO PRN (09:48)
[2017-01-28] MEDS: Enoxaparin 40 MG/0.4 ML Syringe SUBCUT SCH (12:00)
--- NOTE | 2017-01-28 12:05 | PCM.SN ---
- Free Text/Narrative Note: I spoke with patient and examined him. His symptoms are suggestive of acid reflux. He has had similar acid reflux symptoms in the past . His EKG shows NSR with no ischemic changes. He has Q waves in III and AVF. He has no known prior history of cardiac disease. I suspect that he may have had a previously undiagnosed inferior WA. I ordered an echo. Will request outpatient cardiology consult within a month. Graham Desouza MD
[2017-01-28] MEDS: Dextrose 5%-0.45% NaCl 1,000 ML IV SCH (12:36)
[2017-01-28] MEDS ORDERED: Bisacodyl 10 MG Supp RECTAL ONE (12:42)
--- NOTE | 2017-01-28 13:41 | OR ---
SURGEON: Emily Stephens M.D. DATE OF PROCEDURE: 01/27/2017 PREOPERATIVE DIAGNOSIS: Right renal cell carcinoma. POSTOPERATIVE DIAGNOSIS: Right renal cell carcinoma. OPERATION: Right radical nephrectomy. DESCRIPTION OF PROCEDURE: The patient was given general anesthesia, placed in supine position. A catheter was placed in the bladder. The anterior abdominal wall was then prepped and draped in sterile drapes. An upper midline incision was made and carried to just below the umbilicus. The abdominal cavity was entered; no adhesions were encountered. The right colon was reflected medially all the way across the vena cava, along with the duodenum. Once the vena cava was exposed, the right renal vein was identified. The renal arteries were then identified next and ligated with 0 silk x2. The renal vein was ligated with 0 silk x2 as well. The renal hilum was cut, and the rest of the dissection around the kidney was carried out. Inspection shows no enlarged lymph nodes. Some of the hilar lymph nodes will be in the specimen. The ureter was transected. The distal end was closed with a hemoclip. At the end, the renal bed was irrigated. The colon was put back in place and so was the small bowel. The fascia was closed with #1 Maxon suture. Subcutaneous tissues were reapproximated with 3-0 chromic. Skin was closed with denton. ESTIMATED BLOOD LOSS: 275 mL. OPERATING TIME: 2 hours and 30 minutes. [employer] SEPARATOR OPERATOR: Dr. De. PENELOPE / FILIBERTO /[id number]
--- NOTE | 2017-01-28 13:59 | PCM48HPAN ---
Post Anesthesia Note - EVALUATION WITHIN 48HRS OF ANESTHETIC Vital Signs in Normal Range: Yes Patient Participated in Evaluation: Yes Respiratory Function Stable: Yes Airway Patent: Yes Cardiovascular Function Stable: Yes Hydration Status Stable: Yes Pain Control Satisfactory: Yes Nausea and Vomiting Control Satisfactory: Yes Mental Status Recovered: Yes
[2017-01-28] MEDS: Acetaminophen/HYDROcodone 325-5 MG Tab PO PRN ×2 (14:22→19:42)
[2017-01-28] MEDS: Famotidine 20 MG/2 ML SDV IVPUSH SCH (19:59)
[2017-01-28] MEDS: Codeine/Promethazine 10-6.25 MG/5 ML Syrup 5 ML UD Cup PO PRN (21:37)
[2017-01-29] MEDS: Acetaminophen/HYDROcodone 325-5 MG Tab PO PRN ×4 (00:11→18:05)
[2017-01-29] MEDS: ceFAZolin 1 GM in Premix Bag 1 BAG IV SCH ×4 (02:06→20:03)
[2017-01-29] MEDS: Dextrose 5%-0.45% NaCl 1,000 ML IV SCH (02:47)
[2017-01-29] MEDS: Codeine/Promethazine 10-6.25 MG/5 ML Syrup 5 ML UD Cup PO PRN ×2 (02:48→22:10)
[2017-01-29] MEDS: Metoprolol Succinate 50 MG Tab.ER PO SCH ×2 (08:09→20:03)
[2017-01-29] MEDS: Famotidine 20 MG/2 ML SDV IVPUSH SCH ×2 (08:11→20:03)
--- NOTE | 2017-01-29 09:31 | PCM.CONSN ---
- General Info Subjective Update: epigastric pain has resolved. C/o of low back pain. He has received one dose of norco last night. He slept in recliner. Functional Status: Reports: Tolerating Diet, Urinating - Review of Systems General: Reports: No Symptoms HEENT: Reports: No Symptoms Pulmonary: Reports: No Symptoms Cardiovascular: Reports: No Symptoms Gastrointestinal: Reports: No Symptoms Genitourinary: Reports: No Symptoms Musculoskeletal: Reports: Back Pain Skin: Reports: No Symptoms Neurological: Reports: No Symptoms Psychiatric: Reports: No Symptoms - Patient Data Vitals - Most Recent: Last Vital Signs Temp 98.6 F 01/29/17 04:00 Pulse 75 01/29/17 08:09 Resp 14 01/29/17 06:00 BP 160/94 H 01/29/17 08:09 Pulse Ox 100 01/29/17 06:00 Weight - Most Recent: 76 kg I&O - Last 24 Hours: Intake & Output 01/28/17 01/29/17 01/29/17 22:59 06:59 14:59 Intake Total 2402 1590 Output Total 2100 1750 Balance 302 -160 Lab Results Last 24 Hours: Laboratory Results - last 24 hr 01/29/17 01/29/17 Range/Units 05:52 05:52 WBC 10.07 (4.0-11.0) K/uL RBC 3.52 L (4.50-5.90) M/uL Hgb 11.6 L (13.0-17.0) g/dL Hct 35.4 L (38.0-50.0) % MCV 100.6 H (80.0-98.0) fL MCH 33.0 H (27.0-32.0) pg MCHC 32.8 (31.0-37.0) g/dL RDW Std Deviation 51.6 (28.0-62.0) fl RDW Coeff of Durga 14 (11.0-15.0) % Plt Count 298 (150-400) K/uL MPV 10.40 (7.40-12.00) fL Neut % (Auto) 56.1 (48.0-80.0) % Lymph % (Auto) 22.4 (16.0-40.0) % [place] % (Auto) 17.9 H (0.0-15.0) % Eos % (Auto) 3.5 (0.0-7.0) % Baso % (Auto) 0.1 (0.0-1.5) % Neut # (Auto) 5.7 (1.4-5.7) K/uL Lymph # (Auto) 2.3 (0.6-2.4) K/uL [place] # (Auto) 1.8 H (0.0-0.8) K/uL Eos # (Auto) 0.4 (0.0-0.7) K/uL Baso # (Auto) 0.0 (0.0-0.1) K/uL Nucleated RBC % 0.0 /100WBC Nucleated RBCs # 0 K/uL Sodium 137 (136-146) mmol/L Potassium 5.2 H (3.5-5.1) mmol/L Chloride 104 (98-110) mmol/L Carbon Dioxide 27 (21-31) mmol/L BUN 7 (6.0-23.0) mg/dL Creatinine 1.3 (0.6-1.5) mg/dL Est Cr Clr Drug Dosing 59.42 mL/min Estimated GFR (MDRD) 55.6 ml/min Glucose 93 (60-110) mg/dL Calcium 9.0 (8.8-10.8) mg/dL Med Orders - Current: Current Medications Hydrocodone Bitart/Acetaminophen ([place] 325-5 Mg) 1 tab PO Q4H PRN PRN Reason: Pain Last Admin: 01/29/17 09:14 Dose: 1 tab Albuterol (Ventolin Hfa) 0 gm INH DAILY PRN PRN Reason: Wheezing Calcium Carbonate/Glycine (Tums) 500 mg PO Q2HR PRN PRN Reason: Indigestion Last Admin: 01/28/17 09:48 Dose: 500 mg Enoxaparin Sodium (Lovenox) 40 mg SUBCUT Q24H [facility] Last Admin: 01/28/17 12:00 Dose: 40 mg Famotidine (Pepcid) 20 mg IVPUSH BID [facility] Last Admin: 01/29/17 08:11 Dose: 20 mg Fentanyl (Sublimaze) 50 - 100 mcg IVPUSH Q2H PRN PRN Reason: Breakthrough Pain Hydromorphone HCl (Dilaudid) 2 mg IVPUSH Q2H PRN PRN Reason: Pain Last Admin: 01/27/17 12:40 Dose: 2 mg Lactated Ringer's (Ringers, Lactated) 1,000 mls @ 200 mls/hr IV ASDIRECTED [facility] Last Admin: 01/27/17 06:47 Dose: 200 mls/hr Cefazolin Sodium/Dextrose 1 gm (/ Premix) 50 mls @ 100 mls/hr IV Q6H [facility] Last Admin: 01/29/17 08:07 Dose: 100 mls/hr Dextrose/Sodium Chloride (Dextrose 5%-1/2 Ns) 1,000 mls @ 75 mls/hr IV ASDIRECTED [facility] Last Admin: 01/29/17 02:47 Dose: 75 mls/hr Lorazepam (Ativan) 0 mg PO ASDIRECTED [facility] PRN Reason: Protocol Metoprolol Succinate (Toprol Xl) 50 mg PO BID [facility] Last Admin: 01/29/17 08:09 Dose: 50 mg Ondansetron HCl (Zofran) 4 mg IVPUSH Q4H PRN PRN Reason: Nausea Last Admin: 01/28/17 06:24 Dose: 4 mg Promethazine HCl/Codeine (Phenergan With Codeine) 10 ml PO Q4H PRN PRN Reason: Cough Last Admin: 01/29/17 02:48 Dose: 10 ml Sodium Chloride (Saline Flush) 10 ml FLUSH ASDIRECTED PRN PRN Reason: Keep Vein Open Sodium Chloride (Saline Flush) 2.5 ml FLUSH ASDIRECTED PRN PRN Reason: Keep Vein Open Discontinued Medications Bisacodyl (Dulcolax) 10 mg RECTAL ONETIME ONE Stop: 01/28/17 12:43 Last Admin: 01/28/17 14:22 Dose: 10 mg Ephedrine Sulfate (Ephedrine Sulfate) Confirm Administered Dose 100 mg .ROUTE .STK-MED ONE Stop: 01/27/17 07:26 Fentanyl (Sublimaze) Confirm Administered Dose 100 mcg .ROUTE .STK-MED ONE Stop: 01/27/17 07:20 Fentanyl (Sublimaze) Confirm Administered Dose 250 mcg .ROUTE .STK-MED ONE Stop: 01/27/17 07:20 Furosemide (Lasix) 10 mg IVPUSH NOW ONE Stop: 01/28/17 08:13 Last Admin: 01/28/17 08:37 Dose: 10 mg Gentamicin Sulfate (Gentamicin) Confirm Administered Dose 80 mg .ROUTE .STK-MED ONE Stop: 01/27/17 07:42 Glycopyrrolate () Confirm Administered Dose 1 mg .ROUTE .STK-MED ONE Stop: 01/27/17 07:24 Hydromorphone HCl (Dilaudid) Confirm Administered Dose 2 mg .ROUTE .STK-MED ONE Stop: 01/27/17 12:36 Last Admin: 01/27/17 12:47 Dose: Not Given Cefazolin Sodium/Dextrose 2 gm (/ Premix) 50 mls @ 100 mls/hr IV ONCALL ONE Stop: 01/27/17 07:29 Last Admin: 01/27/17 13:28 Dose: Not Given Potassium Chloride/Dextrose/Sod Cl (D5 1/2 Ns W/ 20 Meq/L Kcl) 1,000 mls @ 150 mls/hr IV ASDIRECTED [facility] Last Admin: 01/28/17 02:47 Dose: 150 mls/hr Cefazolin Sodium/Dextrose 1 gm (/ Premix) 50 mls @ 100 mls/hr IV Q6H [facility] Last Admin: 01/27/17 13:30 Dose: Not Given Potassium Chloride/Dextrose/Sod Cl (D5 1/2 Ns W/ 20 Meq/L Kcl) 1,000 mls @ 75 mls/hr IV ASDIRECTED [facility] Lidocaine (Xylocaine-Mpf 2%) Confirm Administered Dose 10 ml .ROUTE .STK-MED ONE Stop: 01/27/17 07:19 Midazolam HCl (Versed 1 Mg/Ml) Confirm Administered Dose 2 mg .ROUTE .STK-MED ONE Stop: 01/27/17 07:20 Morphine Sulfate (Duramorph Pf) Confirm Administered Dose 10 mg .ROUTE .STK-MED ONE Stop: 01/27/17 07:34 Nalbuphine HCl (Nubain) 5 mg IVPUSH Q3H PRN PRN Reason: Pruritis Stop: 01/28/17 15:13 Naloxone HCl (Narcan) 0.1 mg IVPUSH ONETIME PRN PRN Reason: Respiratory Depression Stop: 01/28/17 15:13 Neostigmine Methylsulfate (Neostigmine) Confirm Administered Dose 5 mg .ROUTE .STK-MED ONE Stop: 01/27/17 07:24 Ondansetron HCl (Zofran) Confirm Administered Dose 8 mg .ROUTE .STK-MED ONE Stop: 01/27/17 07:24 Pantoprazole Sodium (Protonix) 40 mg PO ACBREAKFAST [facility] Last Admin: 01/28/17 07:33 Dose: 40 mg Phenylephrine HCl (Phenylephrine In Ns 100 Mcg/Ml) Confirm Administered Dose 1 mg .ROUTE .STK-MED ONE Stop: 01/27/17 09:00 Phenylephrine HCl (Ander-Synephrine) Confirm Administered Dose 10 mg .ROUTE .STK- MED ONE Stop: 01/27/17 09:00 Propofol (Diprivan 20 Ml) Confirm Administered Dose 400 mg .ROUTE .STK-MED ONE Stop: 01/27/17 07:19 Propofol (Diprivan 20 Ml) Confirm Administered Dose 200 mg .ROUTE .STK-MED ONE Stop: 01/27/17 09:33 Propofol (Diprivan 20 Ml) Confirm Administered Dose 200 mg .ROUTE .STK-MED ONE Stop: 01/27/17 10:38 Rocuronium [place] (Zemuron) Confirm Administered Dose 100 mg .ROUTE .STK-MED ONE Stop: 01/27/17 07:24 Rocuronium [place] (Zemuron) Confirm Administered Dose 100 mg .ROUTE .STK-MED ONE Stop: 01/27/17 09:26 - Exam General: Alert, Oriented HEENT: Pupils Equal, EOMI Neck: Supple, Trachea Midline Lungs: Clear to Auscultation, Normal Respiratory Effort Cardiovascular: Regular Rate, Regular Rhythm Back Exam: Paraspinal Tenderness Extremities: Normal Inspection Skin: Warm, Dry, Intact Neurological: No New Focal Deficit Psy/Mental Status: Alert, Normal Affect, Normal Mood Consult PN Assessment/Plan Procedures: Procedures AIRWAY INHALATION TREATMENT (06/14/13) ASSAY OF CK (CPK) (06/14/13) ASSAY OF NATRIURETIC PEPTIDE (06/14/13) ASSAY OF TROPONIN QUANT (06/14/13) CHEST X-RAY 2VW FRONTAL&LATL (06/14/13) COMPLETE CBC W/AUTO DIFF WBC (06/14/13) COMPREHEN METABOLIC PANEL (06/14/13) CREATINE MB FRACTION (06/14/13) ELECTROCARDIOGRAM TRACING (06/14/13) EMERGENCY DEPT VISIT (06/14/13) ROUTINE VENIPUNCTURE (06/14/13) URINALYSIS AUTO W/SCOPE (01/17/17) Problem List Initiated/Reviewed/Updated: Yes Plan: GERD: contiue tums and IVP pepcid 20 mg bid. Elevated blood pressure most likely secondary to pain: norco po x 1 now. montor blood pressure OLD EKG changes: Echo results pending.
[2017-01-29] MEDS ORDERED: Furosemide 40 MG/4 ML VIAL IVPUSH ONE (10:04)
[2017-01-29] MEDS: Enoxaparin 40 MG/0.4 ML Syringe SUBCUT SCH (10:35)
--- NOTE | 2017-01-29 11:30 | PCM.SURGPN ---
- General Info Date of Service: 01/29/17 Date of Surgery/Procedure: 01/27/17 POD#: 2 Functional Status: Reports: Pain Controlled - Review of Systems General: Reports: No Symptoms HEENT: Reports: No Symptoms Pulmonary: Reports: No Symptoms Cardiovascular: Reports: No Symptoms Gastrointestinal: Reports: No Symptoms Genitourinary: Reports: No Symptoms Musculoskeletal: Reports: No Symptoms Skin: Reports: No Symptoms Neurological: Reports: No Symptoms Psychiatric: Reports: No Symptoms - Patient Data Vitals - Most Recent: Last Vital Signs Temp 98.8 F 01/29/17 11:00 Pulse 80 01/29/17 11:00 Resp 19 01/29/17 11:00 BP 145/77 H 01/29/17 11:00 Pulse Ox 93 L 01/29/17 11:00 Weight - Most Recent: 167 lb 8.821 oz I&O - Last 24 Hours: Intake & Output 01/28/17 01/29/17 01/29/17 19:59 03:59 11:59 Intake Total 2402 100 1540 Output Total 2100 1750 Balance 302 100 -210 Lab Results Last 24 Hrs: Laboratory Results - last 24 hr 01/29/17 01/29/17 Range/Units 05:52 05:52 WBC 10.07 (4.0-11.0) K/uL RBC 3.52 L (4.50-5.90) M/uL Hgb 11.6 L (13.0-17.0) g/dL Hct 35.4 L (38.0-50.0) % MCV 100.6 H (80.0-98.0) fL MCH 33.0 H (27.0-32.0) pg MCHC 32.8 (31.0-37.0) g/dL RDW Std Deviation 51.6 (28.0-62.0) fl RDW Coeff of Durga 14 (11.0-15.0) % Plt Count 298 (150-400) K/uL MPV 10.40 (7.40-12.00) fL Neut % (Auto) 56.1 (48.0-80.0) % Lymph % (Auto) 22.4 (16.0-40.0) % [place] % (Auto) 17.9 H (0.0-15.0) % Eos % (Auto) 3.5 (0.0-7.0) % Baso % (Auto) 0.1 (0.0-1.5) % Neut # (Auto) 5.7 (1.4-5.7) K/uL Lymph # (Auto) 2.3 (0.6-2.4) K/uL [place] # (Auto) 1.8 H (0.0-0.8) K/uL Eos # (Auto) 0.4 (0.0-0.7) K/uL Baso # (Auto) 0.0 (0.0-0.1) K/uL Nucleated RBC % 0.0 /100WBC Nucleated RBCs # 0 K/uL Sodium 137 (136-146) mmol/L Potassium 5.2 H (3.5-5.1) mmol/L Chloride 104 (98-110) mmol/L Carbon Dioxide 27 (21-31) mmol/L BUN 7 (6.0-23.0) mg/dL Creatinine 1.3 (0.6-1.5) mg/dL Est Cr Clr Drug Dosing 59.42 mL/min Estimated GFR (MDRD) 55.6 ml/min Glucose 93 (60-110) mg/dL Calcium 9.0 (8.8-10.8) mg/dL Med Orders - Current: Current Medications Hydrocodone Bitart/Acetaminophen ([place] 325-5 Mg) 1 tab PO Q4H PRN PRN Reason: Pain Last Admin: 01/29/17 09:14 Dose: 1 tab Albuterol (Ventolin Hfa) 0 gm INH DAILY PRN PRN Reason: Wheezing Calcium Carbonate/Glycine (Tums) 500 mg PO Q2HR PRN PRN Reason: Indigestion Last Admin: 01/28/17 09:48 Dose: 500 mg Enoxaparin Sodium (Lovenox) 40 mg SUBCUT Q24H [facility] Last Admin: 01/29/17 10:35 Dose: 40 mg Famotidine (Pepcid) 20 mg IVPUSH BID [facility] Last Admin: 01/29/17 08:11 Dose: 20 mg Fentanyl (Sublimaze) 50 - 100 mcg IVPUSH Q2H PRN PRN Reason: Breakthrough Pain Hydromorphone HCl (Dilaudid) 2 mg IVPUSH Q2H PRN PRN Reason: Pain Last Admin: 01/27/17 12:40 Dose: 2 mg Cefazolin Sodium/Dextrose 1 gm (/ Premix) 50 mls @ 100 mls/hr IV Q6H [facility] Last Admin: 01/29/17 08:07 Dose: 100 mls/hr Dextrose/Sodium Chloride (Dextrose 5%-1/2 Ns) 1,000 mls @ 75 mls/hr IV ASDIRECTED [facility] Last Admin: 01/29/17 02:47 Dose: 75 mls/hr Lorazepam (Ativan) 0 mg PO ASDIRECTED [facility] PRN Reason: Protocol Metoprolol Succinate (Toprol Xl) 50 mg PO BID [facility] Last Admin: 01/29/17 08:09 Dose: 50 mg Ondansetron HCl (Zofran) 4 mg IVPUSH Q4H PRN PRN Reason: Nausea Last Admin: 01/28/17 06:24 Dose: 4 mg Promethazine HCl/Codeine (Phenergan With Codeine) 10 ml PO Q4H PRN PRN Reason: Cough Last Admin: 01/29/17 02:48 Dose: 10 ml Sodium Chloride (Saline Flush) 10 ml FLUSH ASDIRECTED PRN PRN Reason: Keep Vein Open Sodium Chloride (Saline Flush) 2.5 ml FLUSH ASDIRECTED PRN PRN Reason: Keep Vein Open Discontinued Medications Bisacodyl (Dulcolax) 10 mg RECTAL ONETIME ONE Stop: 01/28/17 12:43 Last Admin: 01/28/17 14:22 Dose: 10 mg Ephedrine Sulfate (Ephedrine Sulfate) Confirm Administered Dose 100 mg .ROUTE .STK-MED ONE Stop: 01/27/17 07:26 Fentanyl (Sublimaze) Confirm Administered Dose 100 mcg .ROUTE .STK-MED ONE Stop: 01/27/17 07:20 Fentanyl (Sublimaze) Confirm Administered Dose 250 mcg .ROUTE .STK-MED ONE Stop: 01/27/17 07:20 Furosemide (Lasix) 10 mg IVPUSH NOW ONE Stop: 01/28/17 08:13 Last Admin: 01/28/17 08:37 Dose: 10 mg Furosemide (Lasix) 40 mg IVPUSH NOW ONE Stop: 01/29/17 10:05 Last Admin: 01/29/17 10:36 Dose: 40 mg Gentamicin Sulfate (Gentamicin) Confirm Administered Dose 80 mg .ROUTE .STK-MED ONE Stop: 01/27/17 07:42 Glycopyrrolate () Confirm Administered Dose 1 mg .ROUTE .STK-MED ONE Stop: 01/27/17 07:24 Hydromorphone HCl (Dilaudid) Confirm Administered Dose 2 mg .ROUTE .STK-MED ONE Stop: 01/27/17 12:36 Last Admin: 01/27/17 12:47 Dose: Not Given Cefazolin Sodium/Dextrose 2 gm (/ Premix) 50 mls @ 100 mls/hr IV ONCALL ONE Stop: 01/27/17 07:29 Last Admin: 01/27/17 13:28 Dose: Not Given Lactated Ringer's (Ringers, Lactated) 1,000 mls @ 200 mls/hr IV ASDIRECTED [facility] Last Admin: 01/27/17 06:47 Dose: 200 mls/hr Potassium Chloride/Dextrose/Sod Cl (D5 1/2 Ns W/ 20 Meq/L Kcl) 1,000 mls @ 150 mls/hr IV ASDIRECTED [facility] Last Admin: 01/28/17 02:47 Dose: 150 mls/hr Cefazolin Sodium/Dextrose 1 gm (/ Premix) 50 mls @ 100 mls/hr IV Q6H [facility] Last Admin: 01/27/17 13:30 Dose: Not Given Potassium Chloride/Dextrose/Sod Cl (D5 1/2 Ns W/ 20 Meq/L Kcl) 1,000 mls @ 75 mls/hr IV ASDIRECTED [facility] Lidocaine (Xylocaine-Mpf 2%) Confirm Administered Dose 10 ml .ROUTE .STK-MED ONE Stop: 01/27/17 07:19 Midazolam HCl (Versed 1 Mg/Ml) Confirm Administered Dose 2 mg .ROUTE .STK-MED ONE Stop: 01/27/17 07:20 Morphine Sulfate (Duramorph Pf) Confirm Administered Dose 10 mg .ROUTE .STK-MED ONE Stop: 01/27/17 07:34 Nalbuphine HCl (Nubain) 5 mg IVPUSH Q3H PRN PRN Reason: Pruritis Stop: 01/28/17 15:13 Naloxone HCl (Narcan) 0.1 mg IVPUSH ONETIME PRN PRN Reason: Respiratory Depression Stop: 01/28/17 15:13 Neostigmine Methylsulfate (Neostigmine) Confirm Administered Dose 5 mg .ROUTE .STK-MED ONE Stop: 01/27/17 07:24 Ondansetron HCl (Zofran) Confirm Administered Dose 8 mg .ROUTE .STK-MED ONE Stop: 01/27/17 07:24 Pantoprazole Sodium (Protonix) 40 mg PO ACBREAKFAST [facility] Last Admin: 01/28/17 07:33 Dose: 40 mg Phenylephrine HCl (Phenylephrine In Ns 100 Mcg/Ml) Confirm Administered Dose 1 mg .ROUTE .STK-MED ONE Stop: 01/27/17 09:00 Phenylephrine HCl (Ander-Synephrine) Confirm Administered Dose 10 mg .ROUTE .STK- MED ONE Stop: 01/27/17 09:00 Propofol (Diprivan 20 Ml) Confirm Administered Dose 400 mg .ROUTE .STK-MED ONE Stop: 01/27/17 07:19 Propofol (Diprivan 20 Ml) Confirm Administered Dose 200 mg .ROUTE .STK-MED ONE Stop: 01/27/17 09:33 Propofol (Diprivan 20 Ml) Confirm Administered Dose 200 mg .ROUTE .STK-MED ONE Stop: 01/27/17 10:38 Rocuronium [place] (Zemuron) Confirm Administered Dose 100 mg .ROUTE .STK-MED ONE Stop: 01/27/17 07:24 Rocuronium [place] (Zemuron) Confirm Administered Dose 100 mg .ROUTE .STK-MED ONE Stop: 01/27/17 09:26 - Exam Wound/Incisions: Healing Well General: Alert, Oriented HEENT: Pupils Equal Neck: Supple Lungs: Clear to Auscultation Cardiovascular: Regular Rate GI/Abdominal Exam: Normal Bowel Sounds Extremities: Normal Inspection Skin: Warm, Dry, Intact Psy/Mental Status: Alert, Normal Affect - Problem List Review Problem List Initiated/Reviewed/Updated: Yes - My Orders Last 24 Hours: Active Orders 24 hr Category Date Time Status Communication Order [RC] PER UNIT ROUTINE Care 01/28/17 12:05 Active CXR [Chest 1V Frontal] [CR] Routine Exams 01/29/17 10:04 Taken Echo Comp wo Cont [US] Urgent Exams 01/28/17 11:39 Taken Dextrose 5%-0.45% NaCl [Dextrose 5%-1/2 NS] 1,000 ml Med 01/28/17 12:30 Active IV ASDIRECTED Famotidine [Pepcid] Med 01/28/17 21:00 Active 20 mg IVPUSH BID AN Neuroaxis Duramorph Precaution Reflex [OM.PC] PER Oth 01/28/17 15:15 Ordered UNIT ROUTINE Medication Orders Hydrocodone Bitart/Acetaminophen ([place] 325-5 Mg) 1 tab PO Q4H PRN PRN Reason: Pain Last Admin: 01/29/17 09:14 Dose: 1 tab Admin: 01/29/17 00:11 Dose: 1 tab Admin: 01/28/17 19:42 Dose: 1 tab Admin: 01/28/17 14:22 Dose: 1 tab Albuterol (Ventolin Hfa) 0 gm INH DAILY PRN PRN Reason: Wheezing Calcium Carbonate/Glycine (Tums) 500 mg PO Q2HR PRN PRN Reason: Indigestion Last Admin: 01/28/17 09:48 Dose: 500 mg Enoxaparin Sodium (Lovenox) 40 mg SUBCUT Q24H [facility] Last Admin: 01/29/17 10:35 Dose: 40 mg Admin: 01/28/17 12:00 Dose: 40 mg Admin: 01/27/17 17:23 Dose: Famotidine (Pepcid) 20 mg IVPUSH BID [facility] Last Admin: 01/29/17 08:11 Dose: 20 mg Admin: 01/28/17 19:59 Dose: 20 mg Fentanyl (Sublimaze) 50 - 100 mcg IVPUSH Q2H PRN PRN Reason: Breakthrough Pain Hydromorphone HCl (Dilaudid) 2 mg IVPUSH Q2H PRN PRN Reason: Pain Last Admin: 01/27/17 12:40 Dose: 2 mg Cefazolin Sodium/Dextrose 1 gm (/ Premix) 50 mls @ 100 mls/hr IV Q6H [facility] Last Admin: 01/29/17 08:07 Dose: 100 mls/hr Infusion: 01/29/17 02:36 Dose: 100 mls/hr Admin: 01/29/17 02:06 Dose: 100 mls/hr Admin: 01/28/17 19:45 Dose: 100 mls/hr Infusion: 01/28/17 14:52 Dose: 100 mls/hr Admin: 01/28/17 14:22 Dose: 100 mls/hr Infusion: 01/28/17 08:04 Dose: 100 mls/hr Admin: 01/28/17 07:34 Dose: 100 mls/hr Infusion: 01/28/17 01:49 Dose: 100 mls/hr Admin: 01/28/17 01:19 Dose: 100 mls/hr Infusion: 01/27/17 20:52 Dose: 100 mls/hr Admin: 01/27/17 20:22 Dose: 100 mls/hr Infusion: 01/27/17 14:32 Dose: 100 mls/hr Admin: 01/27/17 14:02 Dose: 100 mls/hr Dextrose/Sodium Chloride (Dextrose 5%-1/2 Ns) 1,000 mls @ 75 mls/hr IV ASDIRECTED [facility] Last Admin: 01/29/17 02:47 Dose: 75 mls/hr Infusion: 01/29/17 01:56 Dose: 75 mls/hr Admin: 01/28/17 12:36 Dose: 75 mls/hr Lorazepam (Ativan) 0 mg PO ASDIRECTED [facility] PRN Reason: Protocol Metoprolol Succinate (Toprol Xl) 50 mg PO BID [facility] Last Admin: 01/29/17 08:09 Dose: 50 mg Admin: 01/28/17 19:59 Dose: 50 mg Admin: 01/28/17 09:44 Dose: Admin: 01/28/17 07:57 Dose: 50 mg Admin: 01/27/17 20:23 Dose: Ondansetron HCl (Zofran) 4 mg IVPUSH Q4H PRN PRN Reason: Nausea Last Admin: 01/28/17 06:24 Dose: 4 mg Promethazine HCl/Codeine (Phenergan With Codeine) 10 ml PO Q4H PRN PRN Reason: Cough Last Admin: 01/29/17 02:48 Dose: 10 ml Admin: 01/28/17 21:37 Dose: 10 ml Sodium Chloride (Saline Flush) 10 ml FLUSH ASDIRECTED PRN PRN Reason: Keep Vein Open Sodium Chloride (Saline Flush) 2.5 ml FLUSH ASDIRECTED PRN PRN Reason: Keep Vein Open - Plan Plan (Free Text/Narrative):: up diet , home tomorrow
[2017-01-29] MEDS: Calcium Carbonate 500 MG Tab.Chew PO PRN (13:39)
--- NOTE | 2017-01-29 15:33 | PCM.CONSN ---
- General Info Date of Service: 01/29/17 Subjective Update: He is feeling better. He is taking po fluids and food but has a poor appetite. no fever. - Patient Data Vitals - Most Recent: Last Vital Signs Temp 98.8 F 01/29/17 11:00 Pulse 94 01/29/17 15:00 Resp 15 01/29/17 15:00 BP 136/83 01/29/17 15:00 Pulse Ox 93 L 01/29/17 15:00 Weight - Most Recent: 76 kg I&O - Last 24 Hours: Intake & Output 01/29/17 01/29/17 01/29/17 06:59 14:59 22:59 Intake Total 1590 Output Total 1750 Balance -160 Lab Results Last 24 Hours: Laboratory Results - last 24 hr 01/29/17 01/29/17 Range/Units 05:52 05:52 WBC 10.07 (4.0-11.0) K/uL RBC 3.52 L (4.50-5.90) M/uL Hgb 11.6 L (13.0-17.0) g/dL Hct 35.4 L (38.0-50.0) % MCV 100.6 H (80.0-98.0) fL MCH 33.0 H (27.0-32.0) pg MCHC 32.8 (31.0-37.0) g/dL RDW Std Deviation 51.6 (28.0-62.0) fl RDW Coeff of Durga 14 (11.0-15.0) % Plt Count 298 (150-400) K/uL MPV 10.40 (7.40-12.00) fL Neut % (Auto) 56.1 (48.0-80.0) % Lymph % (Auto) 22.4 (16.0-40.0) % [place] % (Auto) 17.9 H (0.0-15.0) % Eos % (Auto) 3.5 (0.0-7.0) % Baso % (Auto) 0.1 (0.0-1.5) % Neut # (Auto) 5.7 (1.4-5.7) K/uL Lymph # (Auto) 2.3 (0.6-2.4) K/uL [place] # (Auto) 1.8 H (0.0-0.8) K/uL Eos # (Auto) 0.4 (0.0-0.7) K/uL Baso # (Auto) 0.0 (0.0-0.1) K/uL Nucleated RBC % 0.0 /100WBC Nucleated RBCs # 0 K/uL Sodium 137 (136-146) mmol/L Potassium 5.2 H (3.5-5.1) mmol/L Chloride 104 (98-110) mmol/L Carbon Dioxide 27 (21-31) mmol/L BUN 7 (6.0-23.0) mg/dL Creatinine 1.3 (0.6-1.5) mg/dL Est Cr Clr Drug Dosing 59.42 mL/min Estimated GFR (MDRD) 55.6 ml/min Glucose 93 (60-110) mg/dL Calcium 9.0 (8.8-10.8) mg/dL Med Orders - Current: Current Medications Hydrocodone Bitart/Acetaminophen ([place] 325-5 Mg) 1 tab PO Q4H PRN PRN Reason: Pain Last Admin: 01/29/17 14:01 Dose: 1 tab Albuterol (Ventolin Hfa) 0 gm INH DAILY PRN PRN Reason: Wheezing Calcium Carbonate/Glycine (Tums) 500 mg PO Q2HR PRN PRN Reason: Indigestion Last Admin: 01/29/17 13:39 Dose: 500 mg Enoxaparin Sodium (Lovenox) 40 mg SUBCUT Q24H [facility] Last Admin: 01/29/17 10:35 Dose: 40 mg Famotidine (Pepcid) 20 mg IVPUSH BID [facility] Last Admin: 01/29/17 08:11 Dose: 20 mg Fentanyl (Sublimaze) 50 - 100 mcg IVPUSH Q2H PRN PRN Reason: Breakthrough Pain Hydromorphone HCl (Dilaudid) 2 mg IVPUSH Q2H PRN PRN Reason: Pain Last Admin: 01/27/17 12:40 Dose: 2 mg Cefazolin Sodium/Dextrose 1 gm (/ Premix) 50 mls @ 100 mls/hr IV Q6H [facility] Last Admin: 01/29/17 13:34 Dose: 100 mls/hr Lorazepam (Ativan) 0 mg PO ASDIRECTED [facility] PRN Reason: Protocol Metoprolol Succinate (Toprol Xl) 50 mg PO BID [facility] Last Admin: 01/29/17 08:09 Dose: 50 mg Ondansetron HCl (Zofran) 4 mg IVPUSH Q4H PRN PRN Reason: Nausea Last Admin: 01/28/17 06:24 Dose: 4 mg Promethazine HCl/Codeine (Phenergan With Codeine) 10 ml PO Q4H PRN PRN Reason: Cough Last Admin: 01/29/17 02:48 Dose: 10 ml Sodium Chloride (Saline Flush) 10 ml FLUSH ASDIRECTED PRN PRN Reason: Keep Vein Open Sodium Chloride (Saline Flush) 2.5 ml FLUSH ASDIRECTED PRN PRN Reason: Keep Vein Open Discontinued Medications Bisacodyl (Dulcolax) 10 mg RECTAL ONETIME ONE Stop: 01/28/17 12:43 Last Admin: 01/28/17 14:22 Dose: 10 mg Ephedrine Sulfate (Ephedrine Sulfate) Confirm Administered Dose 100 mg .ROUTE .STK-MED ONE Stop: 01/27/17 07:26 Fentanyl (Sublimaze) Confirm Administered Dose 100 mcg .ROUTE .STK-MED ONE Stop: 01/27/17 07:20 Fentanyl (Sublimaze) Confirm Administered Dose 250 mcg .ROUTE .STK-MED ONE Stop: 01/27/17 07:20 Furosemide (Lasix) 10 mg IVPUSH NOW ONE Stop: 01/28/17 08:13 Last Admin: 01/28/17 08:37 Dose: 10 mg Furosemide (Lasix) 40 mg IVPUSH NOW ONE Stop: 01/29/17 10:05 Last Admin: 01/29/17 10:36 Dose: 40 mg Gentamicin Sulfate (Gentamicin) Confirm Administered Dose 80 mg .ROUTE .STK-MED ONE Stop: 01/27/17 07:42 Glycopyrrolate () Confirm Administered Dose 1 mg .ROUTE .STK-MED ONE Stop: 01/27/17 07:24 Hydromorphone HCl (Dilaudid) Confirm Administered Dose 2 mg .ROUTE .STK-MED ONE Stop: 01/27/17 12:36 Last Admin: 01/27/17 12:47 Dose: Not Given Cefazolin Sodium/Dextrose 2 gm (/ Premix) 50 mls @ 100 mls/hr IV ONCALL ONE Stop: 01/27/17 07:29 Last Admin: 01/27/17 13:28 Dose: Not Given Lactated Ringer's (Ringers, Lactated) 1,000 mls @ 200 mls/hr IV ASDIRECTED [facility] Last Admin: 01/27/17 06:47 Dose: 200 mls/hr Potassium Chloride/Dextrose/Sod Cl (D5 1/2 Ns W/ 20 Meq/L Kcl) 1,000 mls @ 150 mls/hr IV ASDIRECTED [facility] Last Admin: 01/28/17 02:47 Dose: 150 mls/hr Cefazolin Sodium/Dextrose 1 gm (/ Premix) 50 mls @ 100 mls/hr IV Q6H [facility] Last Admin: 01/27/17 13:30 Dose: Not Given Potassium Chloride/Dextrose/Sod Cl (D5 1/2 Ns W/ 20 Meq/L Kcl) 1,000 mls @ 75 mls/hr IV ASDIRECTED [facility] Dextrose/Sodium Chloride (Dextrose 5%-1/2 Ns) 1,000 mls @ 75 mls/hr IV ASDIRECTED [facility] Last Admin: 01/29/17 02:47 Dose: 75 mls/hr Lidocaine (Xylocaine-Mpf 2%) Confirm Administered Dose 10 ml .ROUTE .STK-MED ONE Stop: 01/27/17 07:19 Midazolam HCl (Versed 1 Mg/Ml) Confirm Administered Dose 2 mg .ROUTE .STK-MED ONE Stop: 01/27/17 07:20 Morphine Sulfate (Duramorph Pf) Confirm Administered Dose 10 mg .ROUTE .STK-MED ONE Stop: 01/27/17 07:34 Nalbuphine HCl (Nubain) 5 mg IVPUSH Q3H PRN PRN Reason: Pruritis Stop: 01/28/17 15:13 Naloxone HCl (Narcan) 0.1 mg IVPUSH ONETIME PRN PRN Reason: Respiratory Depression Stop: 01/28/17 15:13 Neostigmine Methylsulfate (Neostigmine) Confirm Administered Dose 5 mg .ROUTE .STK-MED ONE Stop: 01/27/17 07:24 Ondansetron HCl (Zofran) Confirm Administered Dose 8 mg .ROUTE .STK-MED ONE Stop: 01/27/17 07:24 Pantoprazole Sodium (Protonix) 40 mg PO ACBREAKFAST [facility] Last Admin: 01/28/17 07:33 Dose: 40 mg Phenylephrine HCl (Phenylephrine In Ns 100 Mcg/Ml) Confirm Administered Dose 1 mg .ROUTE .STK-MED ONE Stop: 01/27/17 09:00 Phenylephrine HCl (Ander-Synephrine) Confirm Administered Dose 10 mg .ROUTE .STK- MED ONE Stop: 01/27/17 09:00 Propofol (Diprivan 20 Ml) Confirm Administered Dose 400 mg .ROUTE .STK-MED ONE Stop: 01/27/17 07:19 Propofol (Diprivan 20 Ml) Confirm Administered Dose 200 mg .ROUTE .STK-MED ONE Stop: 01/27/17 09:33 Propofol (Diprivan 20 Ml) Confirm Administered Dose 200 mg .ROUTE .STK-MED ONE Stop: 01/27/17 10:38 Rocuronium [place] (Zemuron) Confirm Administered Dose 100 mg .ROUTE .STK-MED ONE Stop: 01/27/17 07:24 Rocuronium [place] (Zemuron) Confirm Administered Dose 100 mg .ROUTE .STK-MED ONE Stop: 01/27/17 09:26 - Exam General: Alert, Oriented, Cooperative Neck: Supple, Trachea Midline Lungs: Clear to Auscultation, Normal Respiratory Effort Cardiovascular: Regular Rate, Regular Rhythm Consult PN Assessment/Plan Procedures: Procedures AIRWAY INHALATION TREATMENT (06/14/13) ASSAY OF CK (CPK) (06/14/13) ASSAY OF NATRIURETIC PEPTIDE (06/14/13) ASSAY OF TROPONIN QUANT (06/14/13) CHEST X-RAY 2VW FRONTAL&LATL (06/14/13) COMPLETE CBC W/AUTO DIFF WBC (06/14/13) COMPREHEN METABOLIC PANEL (06/14/13) CREATINE MB FRACTION (06/14/13) ELECTROCARDIOGRAM TRACING (06/14/13) EMERGENCY DEPT VISIT (06/14/13) ROUTINE VENIPUNCTURE (06/14/13) URINALYSIS AUTO W/SCOPE (01/17/17) (1) Acid reflux SNOMED Code(s): 005631905 Code(s): K21.9 - GASTRO-ESOPHAGEAL REFLUX DISEASE WITHOUT ESOPHAGITIS Current Visit: Yes (2) Status post nephrectomy SNOMED Code(s): 714820144 Code(s): Z90.5 - ACQUIRED ABSENCE OF KIDNEY Current Visit: Yes (3) Volume overload SNOMED Code(s): 21484762 Code(s): E87.70 - FLUID OVERLOAD, UNSPECIFIED Current Visit: Yes Problem List Initiated/Reviewed/Updated: Yes My Orders Last 24 Hours: My Active Orders 01/29/17 10:04 CXR [Chest 1V Frontal] [CR] Routine 01/30/17 05:11 BASIC METABOLIC PANEL,BMP [CHEM] AM CBC WITH AUTO DIFF [HEME] AM MAGNESIUM [CHEM] AM Plan: 01/29/2017 He was ahead on fluid status this am. Lasix was ordered and he had over 2liters out. He had been on oxygen for hypoxia and this has improved after diuresis. CXR showed probably atelectasis. 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 I believe that he is OK for discharge tomorrow. Follow up with cardiology, Dr Escalona , is arranged for follow up for abnormal EKG ; echo reading is pending. Graham Desouza MD
[2017-01-30] MEDS: ceFAZolin 1 GM in Premix Bag 1 BAG IV SCH ×2 (01:49→08:07)
[2017-01-30] MEDS: Acetaminophen/HYDROcodone 325-5 MG Tab PO PRN ×2 (04:33→20:42)
[2017-01-30] MEDS: Famotidine 20 MG/2 ML SDV IVPUSH SCH (08:13)
[2017-01-30] MEDS: Metoprolol Succinate 50 MG Tab.ER PO SCH ×2 (08:13→20:39)
[2017-01-30] MEDS: Enoxaparin 40 MG/0.4 ML Syringe SUBCUT SCH (10:30)
[2017-01-30] MEDS ORDERED: Bisacodyl 10 MG Supp RECTAL ONE (11:18)
--- NOTE | 2017-01-30 11:29 | PCM.SURGPN ---
- General Info Date of Service: 01/30/17 Date of Surgery/Procedure: 01/27/17 POD#: 3 Functional Status: Reports: Pain Controlled - Review of Systems General: Reports: No Symptoms HEENT: Reports: No Symptoms Pulmonary: Reports: No Symptoms Cardiovascular: Reports: No Symptoms Genitourinary: Reports: No Symptoms Musculoskeletal: Reports: No Symptoms Skin: Reports: No Symptoms Neurological: Reports: No Symptoms Psychiatric: Reports: No Symptoms - Patient Data Vitals - Most Recent: Last Vital Signs Temp 97.6 F 01/30/17 08:00 Pulse 89 01/30/17 08:13 Resp 16 01/30/17 08:00 BP 142/99 H 01/30/17 08:13 Pulse Ox 93 L 01/30/17 08:00 Weight - Most Recent: 166 lb 3.657 oz I&O - Last 24 Hours: Intake & Output 01/29/17 01/30/17 01/30/17 19:59 03:59 11:59 Intake Total 1780 450 Output Total 2925 650 Balance -1145 -200 Lab Results Last 24 Hrs: Laboratory Results - last 24 hr 01/26/17 01/30/17 01/30/17 Range/Units 13:34 06:10 06:10 WBC 10.24 (4.0-11.0) K/uL RBC 3.57 L (4.50-5.90) M/uL Hgb 11.8 L (13.0-17.0) g/dL Hct 35.2 L (38.0-50.0) % MCV 98.6 H (80.0-98.0) fL MCH 33.1 H (27.0-32.0) pg MCHC 33.5 (31.0-37.0) g/dL RDW Std Deviation 48.5 (28.0-62.0) fl RDW Coeff of Durga 14 (11.0-15.0) % Plt Count 328 (150-400) K/uL MPV 9.90 (7.40-12.00) fL Neut % (Auto) 69.8 (48.0-80.0) % Lymph % (Auto) 14.7 L (16.0-40.0) % Letcher % (Auto) 12.6 (0.0-15.0) % Eos % (Auto) 2.6 (0.0-7.0) % Baso % (Auto) 0.3 (0.0-1.5) % Neut # (Auto) 7.1 H (1.4-5.7) K/uL Lymph # (Auto) 1.5 (0.6-2.4) K/uL [place]cher # (Auto) 1.3 H (0.0-0.8) K/uL Eos # (Auto) 0.3 (0.0-0.7) K/uL Baso # (Auto) 0.0 (0.0-0.1) K/uL Nucleated RBC % 0.0 /100WBC Nucleated RBCs # 0 K/uL Sodium 137 (136-146) mmol/L Potassium 4.1 (3.5-5.1) mmol/L Chloride 99 (98-110) mmol/L Carbon Dioxide 27 (21-31) mmol/L BUN 9 (6.0-23.0) mg/dL Creatinine 1.5 (0.6-1.5) mg/dL Est Cr Clr Drug Dosing 51.50 mL/min Estimated GFR (MDRD) 47.1 ml/min Glucose 94 (60-110) mg/dL Calcium 9.5 (8.8-10.8) mg/dL Magnesium 1.4 L (1.5-2.3) mEq/L Crossmatch See Detail Med Orders - Current: Current Medications Hydrocodone Bitart/Acetaminophen ([place] 325-5 Mg) 1 tab PO Q4H PRN PRN Reason: Pain Last Admin: 01/30/17 04:33 Dose: 1 tab Albuterol (Ventolin Hfa) 0 gm INH DAILY PRN PRN Reason: Wheezing Calcium Carbonate/Glycine (Tums) 500 mg PO Q2HR PRN PRN Reason: Indigestion Last Admin: 01/29/17 13:39 Dose: 500 mg Enoxaparin Sodium (Lovenox) 40 mg SUBCUT Q24H [facility] Last Admin: 01/30/17 10:30 Dose: 40 mg Famotidine (Pepcid) 20 mg IVPUSH BID [facility] Last Admin: 01/30/17 08:13 Dose: 20 mg Fentanyl (Sublimaze) 50 - 100 mcg IVPUSH Q2H PRN PRN Reason: Breakthrough Pain Hydromorphone HCl (Dilaudid) 2 mg IVPUSH Q2H PRN PRN Reason: Pain Last Admin: 01/27/17 12:40 Dose: 2 mg Lorazepam (Ativan) 0 mg PO ASDIRECTED [facility] PRN Reason: Protocol Metoprolol Succinate (Toprol Xl) 50 mg PO BID [facility] Last Admin: 01/30/17 08:13 Dose: 50 mg Ondansetron HCl (Zofran) 4 mg IVPUSH Q4H PRN PRN Reason: Nausea Last Admin: 01/28/17 06:24 Dose: 4 mg Promethazine HCl/Codeine (Phenergan With Codeine) 10 ml PO Q4H PRN PRN Reason: Cough Last Admin: 01/29/17 22:10 Dose: 10 ml Sodium Chloride (Saline Flush) 10 ml FLUSH ASDIRECTED PRN PRN Reason: Keep Vein Open Sodium Chloride (Saline Flush) 2.5 ml FLUSH ASDIRECTED PRN PRN Reason: Keep Vein Open Discontinued Medications Bisacodyl (Dulcolax) 10 mg RECTAL ONETIME ONE Stop: 01/28/17 12:43 Last Admin: 01/28/17 14:22 Dose: 10 mg Bisacodyl (Dulcolax) 10 mg RECTAL ONETIME ONE Stop: 01/30/17 11:19 Ephedrine Sulfate (Ephedrine Sulfate) Confirm Administered Dose 100 mg .ROUTE .STK-MED ONE Stop: 01/27/17 07:26 Fentanyl (Sublimaze) Confirm Administered Dose 100 mcg .ROUTE .STK-MED ONE Stop: 01/27/17 07:20 Fentanyl (Sublimaze) Confirm Administered Dose 250 mcg .ROUTE .STK-MED ONE Stop: 01/27/17 07:20 Furosemide (Lasix) 10 mg IVPUSH NOW ONE Stop: 01/28/17 08:13 Last Admin: 01/28/17 08:37 Dose: 10 mg Furosemide (Lasix) 40 mg IVPUSH NOW ONE Stop: 01/29/17 10:05 Last Admin: 01/29/17 10:36 Dose: 40 mg Gentamicin Sulfate (Gentamicin) Confirm Administered Dose 80 mg .ROUTE .STK-MED ONE Stop: 01/27/17 07:42 Glycopyrrolate () Confirm Administered Dose 1 mg .ROUTE .STK-MED ONE Stop: 01/27/17 07:24 Hydromorphone HCl (Dilaudid) Confirm Administered Dose 2 mg .ROUTE .STK-MED ONE Stop: 01/27/17 12:36 Last Admin: 01/27/17 12:47 Dose: Not Given Cefazolin Sodium/Dextrose 2 gm (/ Premix) 50 mls @ 100 mls/hr IV ONCALL ONE Stop: 01/27/17 07:29 Last Admin: 01/27/17 13:28 Dose: Not Given Lactated Ringer's (Ringers, Lactated) 1,000 mls @ 200 mls/hr IV ASDIRECTED [facility] Last Admin: 01/27/17 06:47 Dose: 200 mls/hr Potassium Chloride/Dextrose/Sod Cl (D5 1/2 Ns W/ 20 Meq/L Kcl) 1,000 mls @ 150 mls/hr IV ASDIRECTED [facility] Last Admin: 01/28/17 02:47 Dose: 150 mls/hr Cefazolin Sodium/Dextrose 1 gm (/ Premix) 50 mls @ 100 mls/hr IV Q6H [facility] Last Admin: 01/27/17 13:30 Dose: Not Given Cefazolin Sodium/Dextrose 1 gm (/ Premix) 50 mls @ 100 mls/hr IV Q6H [facility] Last Admin: 01/30/17 08:07 Dose: 100 mls/hr Potassium Chloride/Dextrose/Sod Cl (D5 1/2 Ns W/ 20 Meq/L Kcl) 1,000 mls @ 75 mls/hr IV ASDIRECTED [facility] Dextrose/Sodium Chloride (Dextrose 5%-1/2 Ns) 1,000 mls @ 75 mls/hr IV ASDIRECTED [facility] Last Admin: 01/29/17 02:47 Dose: 75 mls/hr Lidocaine (Xylocaine-Mpf 2%) Confirm Administered Dose 10 ml .ROUTE .STK-MED ONE Stop: 01/27/17 07:19 Midazolam HCl (Versed 1 Mg/Ml) Confirm Administered Dose 2 mg .ROUTE .STK-MED ONE Stop: 01/27/17 07:20 Morphine Sulfate (Duramorph Pf) Confirm Administered Dose 10 mg .ROUTE .STK-MED ONE Stop: 01/27/17 07:34 Nalbuphine HCl (Nubain) 5 mg IVPUSH Q3H PRN PRN Reason: Pruritis Stop: 01/28/17 15:13 Naloxone HCl (Narcan) 0.1 mg IVPUSH ONETIME PRN PRN Reason: Respiratory Depression Stop: 01/28/17 15:13 Neostigmine Methylsulfate (Neostigmine) Confirm Administered Dose 5 mg .ROUTE .STK-MED ONE Stop: 01/27/17 07:24 Ondansetron HCl (Zofran) Confirm Administered Dose 8 mg .ROUTE .STK-MED ONE Stop: 01/27/17 07:24 Pantoprazole Sodium (Protonix) 40 mg PO ACBREAKFAST [facility] Last Admin: 01/28/17 07:33 Dose: 40 mg Phenylephrine HCl (Phenylephrine In Ns 100 Mcg/Ml) Confirm Administered Dose 1 mg .ROUTE .STK-MED ONE Stop: 01/27/17 09:00 Phenylephrine HCl (Ander-Synephrine) Confirm Administered Dose 10 mg .ROUTE .STK- MED ONE Stop: 01/27/17 09:00 Propofol (Diprivan 20 Ml) Confirm Administered Dose 400 mg .ROUTE .STK-MED ONE Stop: 01/27/17 07:19 Propofol (Diprivan 20 Ml) Confirm Administered Dose 200 mg .ROUTE .STK-MED ONE Stop: 01/27/17 09:33 Propofol (Diprivan 20 Ml) Confirm Administered Dose 200 mg .ROUTE .STK-MED ONE Stop: 01/27/17 10:38 Rocuronium [place] (Zemuron) Confirm Administered Dose 100 mg .ROUTE .STK-MED ONE Stop: 01/27/17 07:24 Rocuronium [place] (Zemuron) Confirm Administered Dose 100 mg .ROUTE .STK-MED ONE Stop: 01/27/17 09:26 - Exam Wound/Incisions: Healing Well General: Alert HEENT: Pupils Equal Neck: Supple Lungs: Clear to Auscultation Cardiovascular: Regular Rate, Regular Rhythm GI/Abdominal Exam: Soft, Non-Tender Extremities: Normal Inspection Skin: Warm, Dry, Intact Neurological: No New Focal Deficit - Problem List Review Problem List Initiated/Reviewed/Updated: Yes - My Orders Last 24 Hours: Active Orders 24 hr Category Date Time Status Transfer Patient (Change bed) [ADT] Routine ADT 01/29/17 15:43 Ordered Remove Vargas Catheter [Urinary Catheter Removal] [RC] Care 01/29/17 12:06 Active Per Unit Routine Regular Diet [DIET] Diet 01/29/17 Lunch Active Medication Orders Hydrocodone Bitart/Acetaminophen ([place] 325-5 Mg) 1 tab PO Q4H PRN PRN Reason: Pain Last Admin: 01/30/17 04:33 Dose: 1 tab Admin: 01/29/17 18:05 Dose: 1 tab Admin: 01/29/17 14:01 Dose: 1 tab Admin: 01/29/17 09:14 Dose: 1 tab Admin: 01/29/17 00:11 Dose: 1 tab Admin: 01/28/17 19:42 Dose: 1 tab Admin: 01/28/17 14:22 Dose: 1 tab Albuterol (Ventolin Hfa) 0 gm INH DAILY PRN PRN Reason: Wheezing Calcium Carbonate/Glycine (Tums) 500 mg PO Q2HR PRN PRN Reason: Indigestion Last Admin: 01/29/17 13:39 Dose: 500 mg Admin: 01/28/17 09:48 Dose: 500 mg Enoxaparin Sodium (Lovenox) 40 mg SUBCUT Q24H [facility] Last Admin: 01/30/17 10:30 Dose: 40 mg Admin: 01/29/17 10:35 Dose: 40 mg Admin: 01/28/17 12:00 Dose: 40 mg Admin: 01/27/17 17:23 Dose: Famotidine (Pepcid) 20 mg IVPUSH BID [facility] Last Admin: 01/30/17 08:13 Dose: 20 mg Admin: 01/29/17 20:03 Dose: 20 mg Admin: 01/29/17 08:11 Dose: 20 mg Admin: 01/28/17 19:59 Dose: 20 mg Fentanyl (Sublimaze) 50 - 100 mcg IVPUSH Q2H PRN PRN Reason: Breakthrough Pain Hydromorphone HCl (Dilaudid) 2 mg IVPUSH Q2H PRN PRN Reason: Pain Last Admin: 01/27/17 12:40 Dose: 2 mg Lorazepam (Ativan) 0 mg PO ASDIRECTED [facility] PRN Reason: Protocol Metoprolol Succinate (Toprol Xl) 50 mg PO BID [facility] Last Admin: 01/30/17 08:13 Dose: 50 mg Admin: 01/29/17 20:03 Dose: 50 mg Admin: 01/29/17 08:09 Dose: 50 mg Admin: 01/28/17 19:59 Dose: 50 mg Admin: 01/28/17 09:44 Dose: Admin: 01/28/17 07:57 Dose: 50 mg Admin: 01/27/17 20:23 Dose: Ondansetron HCl (Zofran) 4 mg IVPUSH Q4H PRN PRN Reason: Nausea Last Admin: 01/28/17 06:24 Dose: 4 mg Promethazine HCl/Codeine (Phenergan With Codeine) 10 ml PO Q4H PRN PRN Reason: Cough Last Admin: 01/29/17 22:10 Dose: 10 ml Admin: 01/29/17 02:48 Dose: 10 ml Admin: 01/28/17 21:37 Dose: 10 ml Sodium Chloride (Saline Flush) 10 ml FLUSH ASDIRECTED PRN PRN Reason: Keep Vein Open Sodium Chloride (Saline Flush) 2.5 ml FLUSH ASDIRECTED PRN PRN Reason: Keep Vein Open - Plan Plan (Free Text/Narrative):: Dulcolax supp will keep him one more day
[2017-01-30] MEDS: Famotidine 20 MG Tab PO SCH (20:40)
[2017-01-31] MEDS: Metoprolol Succinate 50 MG Tab.ER PO SCH (08:44)
[2017-01-31] MEDS: Famotidine 20 MG Tab PO SCH (08:45)
[2017-01-31] MEDS: Enoxaparin 40 MG/0.4 ML Syringe SUBCUT SCH (11:30)
--- NOTE | 2017-01-31 15:43 | CR ---
EXAM DATE: 01/27/17 PATIENT'S AGE: 66 Patient: OVIDIO FLORENCE Facility: [place], [place] Site . Site : 1950 Study: XRay Chest [id number] 10:23:09 AM Ordering Physician: Kat Diaz Final Report: Hypoxia portable chest. No comparison studies are available. Findings : Normal cardiac mediastinal silhouette. Left hemidiaphragm is mildly elevated. Right basilar strandy opacities probably reflect atelectasis or scarring. Left basilar atelectasis. No pneumothorax. No effusion seen. Dictated by Kandy Davis MD @ Jan 29 2017 10:43AM (Electronic Signature) Report Signed by Proxy. AGNIESZKA
--- NOTE | 2017-02-01 05:57 | DISCH ---
DATE OF DISCHARGE: 01/31/2017 PRIMARY CARE PHYSICIAN: Luisana Infante [facility] COURSE: This is a 66-year-old. He was evaluated by his primary care provider for abdominal pain, had a CT scan that showed a 3.7 cm right renal cell carcinoma. He was admitted to the hospital and had right radical nephrectomy on January 27, 2017. Postoperatively, his postoperative course was uneventful. He was discharged on the fourth postoperative day. At the time of discharge, his abdomen is soft. He is passing gas and having bowel movements. His vital signs are normal. His labs are within normal limits. His serum creatinine has gone from preop of 1 to 1.5. He will be seen in my office in 3 weeks to have the denton removed. His next followup will be in [address] scan of the chest, abdomen, and pelvis and a BMP. PENELOPE / FILIBERTO /[id number]
--- NOTE | 2017-02-02 13:42 | ECHO ---
EXAM DATE: 01/27/17 PATIENT'S AGE: 66 The echocardiogram report can be seen in this patient's EMR (Electronic Medical Record) in the Reports section. The report has also been scanned into PACs. AGNIESZKA
== END 2017-01-31 11:15 | disposition home or self-care (01) | DRG 442 ==
LOC: MW.ICU 06:26 → MW.MS 01-29 19:55
PROVIDERS: ADMIT Urology; ATTEND Urology
PROC: 0TT00ZZ Resection of Right Kidney, Open Approach (ICD-10-PCS; principal; 2017-01-27)
DX: C64.1 Malignant neoplasm of right kidney, except renal pelvis (principal); K21.9 Gastro-esophageal reflux disease without esophagitis; I10 Essential (primary) hypertension; J44.9 Chronic obstructive pulmonary disease, unspecified; R09.02 Hypoxemia; E87.70 Fluid overload, unspecified; J98.11 Atelectasis; F10.10 Alcohol abuse, uncomplicated; F17.200 Nicotine dependence, unspecified, uncomplicated; Z79.899 Other long term (current) drug therapy; I25.2 Old myocardial infarction
CPT/HCPCS: 00862; 36415; 71010; 71010-26; 80048; 83735; 84484; 85025; 86850; 86900; 86901; 86920; 86921; 86922; 88309; 88329; 93005; 93306; A9270-GY; J0690; J1170; J1580; J1650; J1940; J2250; J2270; J2370; J2405; J2704; J3010; J3480; J7042; J7120

== ENCOUNTER 2017-11-08 07:33 | Day surgery (SDC) | payer BC ==
[~2017-11-08 07:33] MED LIST: Albuterol 6.7 GM Inhaler INH ONE; Lactated Ringers 1,000 ML IV SCH; Sodium Chloride 0.9% 10 ML Syringe FLUSH PRN; Sodium Chloride 0.9% 2.5 ML Syringe FLUSH PRN; ceFAZolin 1 GM in Premix Bag 1 BAG IV ONE
[2017-11-08] MEDS ORDERED: Albuterol/Ipratropium 3.0-0.5 MG/3 ML Neb Soln ONE (08:10)
[2017-11-08] MEDS ORDERED: Midazolam 1 MG/ML 2 ML SDV ONE (08:18)
[2017-11-08] MEDS ORDERED: Propofol 200 MG/20 ML SDV ONE ×2 (08:18)
[2017-11-08] MEDS ORDERED: fentaNYL 100 MCG/2 ML SDV ONE ×2 (08:18→08:52)
[2017-11-08] MEDS ORDERED: Lidocaine 2% 5 ML SDV ONE (08:18)
--- NOTE | 2017-11-08 08:23 | PCM.PREANE ---
Preanesthetic Assessment - Anesthesia/Transfusion/Family Hx Anesthesia History: Prior Anesthesia Without Reaction Family History of Anesthesia Reaction: No Transfusion History: No Prior Transfusion(s) Intubation History: Unknown - Review of Systems General: No Symptoms Pulmonary: No Symptoms Cardiovascular: No Symptoms Gastrointestinal: No Symptoms Neurological: No Symptoms Other: Reports: None - Physical Assessment Height: 1.7 m Weight: 75.75 kg ASA Class: 3 Mental Status: Alert & Oriented x3 Airway Class: Mallampati = 2 Dentition: Reports: Bridge (upper front), Missing Tooth/Teeth (loose front lower teeth) Thyro-Mental Finger Breadths: 3 Mouth Opening Finger Breadths: 3 ROM/Head Extension: Limited/Partial Lungs: Clear to Auscultation, Normal Respiratory Effort Cardiovascular: Regular Rate, Regular Rhythm - Allergies Allergies/Adverse Reactions: Allergies Allergy/AdvReac Type Severity Reaction Status Date / Time No Known Allergies Allergy Verified 11/07/17 17:20 - Blood Blood Available: No - Anesthesia Plan Pre-Op Medication Ordered: None - Acknowledgements Anesthesia Type Planned: General Anesthesia Pt an Appropriate Candidate for the Planned Anesthesia: Yes Alternatives and Risks of Anesthesia Discussed w Pt/Guardian: Yes Pt/Guardian Understands and Agrees with Anesthesia Plan: Yes PreAnesthesia Questionnaire HEENT History: Reports: Hard of Hearing, Other (See Below) Other HEENT History: has upper partial permanent bridge Cardiovascular History: Reports: Hypertension Respiratory History: 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 PPD smoker for 45 years Gastrointestinal History: Reports: GERD Other Gastrointestinal History: takes OTC Prevacid as needed Genitourinary History: Reports: Other (See Below) Other Genitourinary History: hx of right renal cancer Musculoskeletal History: Reports: Back Pain, Chronic, Fracture Other Musculoskeletal History: hx of fx clavicle Endocrine/Metabolic History: Reports: None Oncologic (Cancer) History: Reports: Renal - Past Surgical History HEENT Surgical History: Reports: Other (See Below) Other HEENT Surgeries/Procedures: had "lump" removed from throat here and at [facility] GI Surgical History: Reports: Colon, Colonoscopy (colon perforated needing resection), Hernia, Inguinal Other GI Surgeries/Procedures: had colonoscopy with perforation, colon repair Male Surgical History: Reports: Nephrectomy (right nephrectomy last january) Oncologic Surgical History: Reports: Other (See Below) Other Oncologic Surgeries/Procedures: Right Nephrectomy - SUBSTANCE USE Smoking Status *Q: Current Every Day Smoker (1/2 ppd) Tobacco Use Within Last Twelve Months: Cigarettes Days Per Week of Alcohol Use: 7 Number of Drinks Per Day: 6 Total Drinks Per Week: 42 Recreational Drug Use History: No - HOME MEDS Home Medications: Home Meds Albuterol [Ventolin HFA] 2 puff INH QAM PRN 11/07/17 [History] Aspirin 325 mg PO DAILY 11/07/17 [History] Losartan Potassium 50 mg PO QAM 11/07/17 [History] Metoprolol Succinate 100 mg PO QAM 11/07/17 [History] - CURRENT (IN HOUSE) MEDS Current Meds: Current Medications Lactated Ringer's (Ringers, Lactated) 1,000 mls @ 100 mls/hr IV ASDIRECTED [facility] Sodium Chloride (Saline Flush) 10 ml FLUSH ASDIRECTED PRN PRN Reason: Keep Vein Open Sodium Chloride (Saline Flush) 2.5 ml FLUSH ASDIRECTED PRN PRN Reason: Keep Vein Open Discontinued Medications Albuterol (Proventil Hfa) 3.5 gm INH ONETIME ONE Stop: 11/08/17 06:31 Last Admin: 11/08/17 08:15 Dose: Not Given Albuterol/Ipratropium (Duoneb 3.0-0.5 Mg/3 Ml) Confirm Administered Dose 3 ml .ROUTE .STK-MED ONE Stop: 11/08/17 08:11 Cefazolin Sodium/Dextrose 1 gm (/ Premix) 50 mls @ 100 mls/hr IV ONCALL ONE Stop: 11/08/17 00:30
[2017-11-08] MEDS ORDERED: Ondansetron 4 MG/2 ML SDV ONE (08:47)
[2017-11-08] MEDS ORDERED: Phenylephrine/Normal Saline 100 MCG/ML 10 ML Syringe ONE (08:53)
[2017-11-08] MEDS ORDERED: fentaNYL 100 MCG/2 ML SDV IVPUSH PRN (09:13)
--- NOTE | 2017-11-08 09:44 | PCM.POSTAN ---
POST ANESTHESIA ASSESSMENT - MENTAL STATUS Mental Status: Alert, Oriented - RESPIRATORY Respiratory Status: Respiratory Rate WNL, Airway Patent, O2 Saturation Stable - CARDIOVASCULAR CV Status: Pulse Rate WNL, Blood Pressure Stable - GASTROINTESTINAL GI Status: No Symptoms - PAIN Pain Score: 0 - POST OP HYDRATION Hydration Status: Adequate & Stable
--- NOTE | 2017-11-08 10:28 | PCM48HPAN ---
Post Anesthesia Note - EVALUATION WITHIN 48HRS OF ANESTHETIC Vital Signs in Normal Range: Yes Patient Participated in Evaluation: Yes Respiratory Function Stable: Yes Airway Patent: Yes Cardiovascular Function Stable: Yes Hydration Status Stable: Yes Pain Control Satisfactory: Yes Nausea and Vomiting Control Satisfactory: Yes Mental Status Recovered: Yes Resp Rate: 12 - COMMENTS/OBSERVATIONS Free Text/Narrative:: no anesthesia problems
--- NOTE | 2017-11-08 14:19 | OR ---
SURGEON: Emily Stephens M.D. DATE OF PROCEDURE: 11/08/2017 PREOPERATIVE DIAGNOSIS: Bladder tumor, medium, to the left ureteral orifice POSTOPERATIVE DIAGNOSIS: Bladder tumor, medium, to the left ureteral orifice. OPERATION: TURBT. DESCRIPTION OF PROCEDURE: The patient was given general anesthesia, was placed in dorsal lithotomy position, prepped and draped in sterile drapes. The 26-[place] continuous-flow resectoscope was introduced in the bladder without difficulty. He does not have an enlarged prostate. The tumor was identified and completely resected with a good muscle base. With that done, all bleeding points were fulgurated. The bladder was emptied and the patient was moved to recovery room in good condition. PENELOPE / FILIBERTO /[id number]
== END 2017-11-08 10:25 | disposition home or self-care (01) ==
LOC: MW.SDS 07:33
PROVIDERS: ATTEND Urology
DX: C67.9 Malignant neoplasm of bladder, unspecified (principal); Z79.82 Long term (current) use of aspirin; Z79.899 Other long term (current) drug therapy; Z87.891 Personal history of nicotine dependence
CPT/HCPCS: 36415; 52235; 85025; 88307; 94640; C1769; J0690; J2250; J2370; J2405; J2704; J3010; J7120; J7620-GY